=== PATIENT | male | born 1955 | race Caucasian/White ===

== ENCOUNTER 2017-12-20 15:41 | Inpatient (IN) | payer OTHER ==
[~2017-12-20] VITALS: Ht 172.7 cm; Wt 86.3 kg
[2017-12-20] MEDS ORDERED: Isovue-300 100ml vial INJ PRN (16:00)
[2017-12-20] MEDS ORDERED: Piperacillin/Tazobactam 3.375 GM in NS 110 ML IVPB ONE (16:15)
--- NOTE | 2017-12-20 16:44 | Diagnostic Imaging Report ---
EXAM: XR Chest, 1 View CLINICAL HISTORY: Shortness of breath TECHNIQUE: Frontal view of the chest. COMPARISON: No relevant prior studies available. FINDINGS: Lungs: Pulmonary vascular congestion. Atelectasis versus infiltrate in the right lung base. Pleural space: Moderate-sized layering right pleural effusion. No pneumothorax. Heart: Unremarkable. No cardiomegaly. Mediastinum: Unremarkable. Bones/joints: Unremarkable. Tubes, lines and devices: EKG leads overlie the thorax. IMPRESSION: 1. Moderate-sized layering right pleural effusion. 2. Pulmonary vascular congestion. 3. Atelectasis versus infiltrate in the right lung base.
[2017-12-20 16:46] LABS: BASOPHILS % (AUTO) 0.8 % (0.0-2.0); EOSINOPHILS % (AUTO) 0.1 % (0.0-3.0); HEMATOCRIT 31.9 % (42.0-52.0); HEMOGLOBIN 10.7 G/DL (14.2-18.0); LYMPHOCYTES % (AUTO) 9.2 % (20.0-45.0); MEAN CORPUSCULAR VOLUME 79 FL (80-99); NEUTROPHILS % (AUTO) 83.9 % (45.0-75.0); PLATELET COUNT 337 K/UL (150-450); RED BLOOD COUNT 4.04 M/UL (4.70-6.10); RED CELL DISTRIBUTION WIDTH 14.2 % (11.6-14.8)
[2017-12-20 16:52] LABS: INR 1.1 (0.9-1.1)
[2017-12-20 17:03] LABS: AMMONIA 43 umol/L (11-32); ANION GAP 7 mmol/L (5-15); BLOOD UREA NITROGEN 32 mg/dL (7-18); CALCIUM 7.8 MG/DL (8.5-10.1); CARBON DIOXIDE 27 MMOL/L (21-32); CHLORIDE 104 MMOL/L (98-107); CREATININE 1.3 MG/DL (0.55-1.30); POTASSIUM 3.7 MMOL/L (3.5-5.1); SODIUM 138 MMOL/L (136-145)
--- NOTE | 2017-12-20 17:07 | Emergency Room Report ---
History of Present Illness General Chief Complaint: Skin Rash/Abscess Source: Patient Present Illness HPI Patient is a 65-year-old male brought in by EMS after increased skin rash and scrotal pain. The patient reports having increased generalized weakness. The patient had been having subjective fevers. He had been noted to have increased pain to the left foot as well as to his scrotal area. The patient denies any past medical history. He reports having some history of cigarette smoking. He denies history of congestive heart failure. The patient was noted to have a difficulty with ambulation due to swelling. Allergies: Coded Allergies: No Known Allergies (Unverified , 12/20/17) Patient History Past Medical History: see triage record Reviewed Nursing Documentation: PMH: Agreed; PSxH: Agreed Nursing Documentation-PMH Past Medical History: No Stated History Review of Systems All Other Systems: negative except mentioned in HPI Physical Exam Vital Signs Date Time Temp Pulse Resp B/P (MAP) Pulse Ox O2 Delivery O2 Flow Rate FiO2 12/20/17 15:36 98.8 86 16 143/97 98 Room Air 98.8 Sp02 EP Interpretation: reviewed, normal General Appearance: normal inspection, alert, GCS 15, Chronically Ill Head: atraumatic ENT: normal ENT inspection, hearing grossly normal, normal voice Neck: normal inspection, full range of motion, supple, no bony tend Respiratory: normal inspection, lungs clear, normal breath sounds, no respiratory distress, no retraction, no wheezing Cardiovascular #1: regular rate, rhythm, edema - 4+ edema to legs and scrotum with ulcerated area to dorsum of left foot with yellow discoloration Gastrointestinal: normal inspection, normal bowel sounds, non tender, soft, no guarding, no hernia Genitourinary: no CVA tenderness Musculoskeletal: normal inspection, back normal Neurologic: normal inspection, alert, oriented x3, responsive, speech normal Psychiatric: normal inspection, judgement/insight normal, mood/affect normal Skin: other - left foot ulcer, scrotal discharge swelling and yellow green discoloration Medical Decision Making Diagnostic Impression: Primary Impression: Cellulitis of scrotum Additional Impressions: Left midfoot ulcer Pedal edema ER Course Patient presented for generalized weakness and lower extremity rash. The differential diagnosis included was not limited to cellulitis, abscess, Fourniere's gangrene, cirrhosis, deep venous thrombosis, congestive heart failure among others.Because of complexity of patient's case laboratory testing and imaging studies were ordered. The patient noted to have evidence of cellulitis the infected ulcer to the left leg as well as some apparent infection to the scrotal area.The patient was started on IV diuretics and IV antibiotics. Dr. Justyn Milner was contacted for inpatient management. Dr. Sears was contacted for surgical consult. due to wound infections. Labs Test 12/20/17 16:10 White Blood Count 13.0 K/UL (4.8-10.8) Red Blood Count 4.04 M/UL (4.70-6.10) Hemoglobin 10.7 G/DL (14.2-18.0) Hematocrit 31.9 % (42.0-52.0) Mean Corpuscular Volume 79 FL (80-99) Mean Corpuscular Hemoglobin 26.5 PG (27.0-31.0) Mean Corpuscular Hemoglobin Concent 33.5 G/DL (32.0-36.0) Red Cell Distribution Width 14.2 % (11.6-14.8) Platelet Count 337 K/UL (150-450) Mean Platelet Volume 6.2 FL (6.5-10.1) Neutrophils (%) (Auto) 83.9 % (45.0-75.0) Lymphocytes (%) (Auto) 9.2 % (20.0-45.0) Monocytes (%) (Auto) 6.0 % (1.0-10.0) Eosinophils (%) (Auto) 0.1 % (0.0-3.0) Basophils (%) (Auto) 0.8 % (0.0-2.0) Prothrombin Time 11.5 SEC (9.30-11.50) Prothromb Time International Ratio 1.1 (0.9-1.1) Activated Partial Thromboplast Time 29 SEC (23-33) EKG Diagnostic Results Rate: normal - 83 Rhythm: NSR ST Segments: other Last Vital Signs Date Time Temp Pulse Resp B/P (MAP) Pulse Ox O2 Delivery O2 Flow Rate FiO2 12/20/17 15:36 98.8 86 16 143/97 98 Room Air 98.8 Status: unchanged Disposition: ADMITTED INPATIENT Condition: Edward Newman MD Dec 20, 2017 17:07
[2017-12-20 17:16] LABS: ALANINE AMINOTRANSFERASE 26 U/L (12-78); ALBUMIN 1.5 G/DL (3.4-5.0); ALBUMIN/GLOBULIN RATIO 0.3 (1.0-2.7); ALKALINE PHOSPHATASE 127 U/L (46-116); ASPARTATE AMINO TRANSFERASE 19 U/L (15-37); BILIRUBIN,TOTAL 0.3 MG/DL (0.2-1.0); CKMB 1.5 NG/ML (0.0-3.6); CREATINE KINASE 93 U/L (26-308); PHOSPHORUS 3.5 MG/DL (2.5-4.9)
[2017-12-20 17:35] VITALS: BP 150/77
[2017-12-20 18:25] VITALS: BP 143/71
[2017-12-20] MEDS ORDERED: NKM (18:31)
--- NOTE | 2017-12-20 18:54 | Diagnostic Imaging Report ---
ADDENDUM - Added by Gordon Kaur MD on 12/20/2017 7:36 PM (-07:00) Additional images were obtained scanning through the scrotum. Once more, diffuse subcutaneous soft tissue stranding/edema/anasarca is noted. There is suggestion of bilateral scrotal hydroceles. No abnormal foci of subcutaneous gas are seen in the scrotum or perineum. EXAM: CT Abdomen and Pelvis With Intravenous Contrast CLINICAL HISTORY: ABD PAIN TECHNIQUE: Axial computed tomography images of the abdomen and pelvis with intravenous contrast. CTDI is 19.90 mGy and DLP is left 57 mGy-cm. One or more of the following dose reduction techniques were used: automated exposure control, adjustment of the mA and/or kV according to patient size, use of iterative reconstruction technique. COMPARISON: No relevant prior studies available. FINDINGS: Lung bases: Compressive atelectasis of bilateral dependent lung bases. Pleural space: Large right and moderate left layering pleural effusions. ABDOMEN: Liver: Mild periportal edema. Gallbladder and bile ducts: Unremarkable. No calcified stones. No ductal dilation. Pancreas: Scattered calcifications in the pancreatic head and uncinate process may suggest remote history of hepatitis. Otherwise appears unremarkable. No ductal dilation. Spleen: Unremarkable. No splenomegaly. Adrenals: Unremarkable. No mass. Kidneys and ureters: Bilateral renal hypervascular calcifications. No radiodense renal or ureteral stones. No hydronephrosis or hydroureter. Scattered simple-appearing renal cortical cysts, largest measuring 1.8 cm in the right lower renal pole. Stomach and bowel: Wall thickening throughout the colon. No obstruction. PELVIS: Appendix: No findings to suggest acute appendicitis. Bladder: Unremarkable. No mass. Reproductive: Unremarkable as visualized. ABDOMEN and PELVIS: Intraperitoneal space: Mild abdominal and pelvic ascites. No free air. Bones/joints: No acute fracture. No dislocation. Soft tissues: Diffuse subcutaneous soft tissue stranding/edema. Small fat-containing left femoral hernia. Vasculature: Atherosclerotic calcifications throughout the abdominal aorta and its proximal branches. No aneurysmal dilatation. Lymph nodes: Unremarkable. No enlarged lymph nodes. IMPRESSION: 1. Wall thickening throughout the colon. This may be related to underdistention versus a mild infectious or inflammatory colitis. No evidence of obstruction. No intraperitoneal free air. 2. Mild abdominal and pelvic ascites. 3. Diffuse subcutaneous soft tissue stranding/edema. 4. Mild periportal edema. This may be related to volume overload. 5. Large right and moderate left layering pleural effusions. 6. Compressive atelectasis of bilateral dependent lung bases. [employer] 12/20/17 19:42 Verify Receipt Verified receipt with LIZANDRO Pierce, given to Umair PINO on 12/20 19:43 (-07:00)
[2017-12-20 19:40] LABS: APPEARANCE,URINE SLIGHTLY CLOUDY; BILIRUBIN, URINE NEGATIVE (NEGATIVE); COLOR,URINE AMBER; GLUCOSE, URINE (UA) NEGATIVE (NEGATIVE); KETONES,URINE NEGATIVE (NEGATIVE); LEUKOCYTE ESTERASE ,URINE NEGATIVE (NEGATIVE); NITRITE,URINE NEGATIVE (NEGATIVE); PH,URINE 5 (4.5-8.0); PROTEIN,URINE 4+ (NEGATIVE); UROBILINOGEN,URINE NORMAL MG/DL (0.0-1.0)
[2017-12-20 20:32] VITALS: BP 145/83
[2017-12-20 21:41] VITALS: BP 144/88
--- NOTE | 2017-12-20 22:39 | General Progress Note ---
Progress Note Progress Note Full note to follow: patient seen and examined in ED. Homeless male with multiple wounds, groin swelling, edema, leukocytosis, weakness. Left foot dorsal stage 4 ulcer left medial ankle 1cm ulcer right foot dorsal blister scrotal swelling with penile swelling and open wound. CT reviewed, labs reviewed. no acute surgical intervention planned foam dressings to wounds above until debridement this week IV abx okay for diet. will follow with recs. thank you Tesfaye Sears Dec 20, 2017 22:39
[2017-12-20] MEDS ORDERED: Milk of Magnesia 30ml Ud ORAL PRN (22:45)
[2017-12-20] MEDS ORDERED: Mylanta II UD 30ml ORAL PRN (22:45)
[2017-12-20] MEDS ORDERED: Morphine Sulfate 4mg/ml Inj IVP PRN ×2 (23:00→23:15)
[2017-12-20] MEDS ORDERED: Heparin 5000 units/ml inj SUBQ SCH (23:00)
[2017-12-20] MEDS ORDERED: D5 1/2NS w/KCl 20mEq 1,000 ML IV SCH (23:39)
[2017-12-21] VITALS: BP 145/79
[2017-12-21] MEDS: Piperacillin/Tazobactam 3.375 GM in D5W 110 ML IVPB SCH ×3 (00:29→16:58)
[2017-12-21] MEDS ORDERED: Vancomycin 750mg/NS 250ml IVPB SCH (01:00)
[2017-12-21 04:00] VITALS: BP 131/77
[2017-12-21 08:00] VITALS: BP 136/74
[2017-12-21 08:14] LABS: BASOPHILS % (AUTO) 0.6 % (0.0-2.0); EOSINOPHILS % (AUTO) 0.3 % (0.0-3.0); HEMATOCRIT 32.4 % (42.0-52.0); HEMOGLOBIN 10.4 G/DL (14.2-18.0); LYMPHOCYTES % (AUTO) 7.8 % (20.0-45.0); MEAN CORPUSCULAR VOLUME 82 FL (80-99); MONOCYTES % (AUTO) 6.6 % (1.0-10.0); NEUTROPHILS % (AUTO) 84.8 % (45.0-75.0); PLATELET COUNT 334 K/UL (150-450); RED BLOOD COUNT 3.94 M/UL (4.70-6.10); RED CELL DISTRIBUTION WIDTH 14.4 % (11.6-14.8); WHITE BLOOD COUNT 11.6 K/UL (4.8-10.8)
[2017-12-21 08:26] LABS: ALANINE AMINOTRANSFERASE 23 U/L (12-78); ALBUMIN 1.4 G/DL (3.4-5.0); ALBUMIN/GLOBULIN RATIO 0.3 (1.0-2.7); ALKALINE PHOSPHATASE 125 U/L (46-116); ANION GAP 8 mmol/L (5-15); ASPARTATE AMINO TRANSFERASE 12 U/L (15-37); BILIRUBIN,TOTAL 0.3 MG/DL (0.2-1.0); BLOOD UREA NITROGEN 27 mg/dL (7-18); CALCIUM 7.7 MG/DL (8.5-10.1); CARBON DIOXIDE 26 MMOL/L (21-32); CHLORIDE 104 MMOL/L (98-107); CHOLESTEROL 101 MG/DL (< 200); CREATININE 1.2 MG/DL (0.55-1.30); HDL CHOLESTEROL 33 MG/DL (40-60); POTASSIUM 3.7 MMOL/L (3.5-5.1); SODIUM 138 MMOL/L (136-145); TRIGLYCERIDES 98 MG/DL (30-150)
[2017-12-21] MEDS ORDERED: Docusate 100mg cap ORAL SCH (09:00)
[2017-12-21] MEDS ORDERED: Heparin 5000 units/ml inj SUBQ SCH (09:00)
--- NOTE | 2017-12-21 10:47 | History & Physical ---
History and Physical History & Physicial 65-year-old male brought in for skin rash and scrotal pain and erythema. patient with generalized weakness. The patient had been having subjective fevers. He had been noted to have increased pain to the left foot as well as to his scrotal area. The patient was noted to have a difficulty with ambulation due to swelling. He notes that he is homeless Allergies: No Known Allergies (Unverified , 12/20/17) Past Medical History: as above Reviewed of systems: as above physical WDWN NAD clear breath sounds bilaterally without rhonchi or wheeze [id number] without MRG NABS nontender no HSM no CC edema and erythema scrotal swelling and erythema open wounds noted nonfocal Laboratory Tests Test 12/20/17 16:10 12/20/17 19:15 12/20/17 21:35 12/21/17 07:05 White Blood Count 13.0 K/UL (4.8-10.8) H 11.6 K/UL (4.8-10.8) H Red Blood Count 4.04 M/UL (4.70-6.10) L 3.94 M/UL (4.70-6.10) L Hemoglobin 10.7 G/DL (14.2-18.0) L 10.4 G/DL (14.2-18.0) L Hematocrit 31.9 % (42.0-52.0) L 32.4 % (42.0-52.0) L Mean Corpuscular Volume 79 FL (80-99) L 82 FL (80-99) Mean Corpuscular Hemoglobin 26.5 PG (27.0-31.0) L 26.4 PG (27.0-31.0) L Mean Corpuscular Hemoglobin Concent 33.5 G/DL (32.0-36.0) 32.1 G/DL (32.0-36.0) Red Cell Distribution Width 14.2 % (11.6-14.8) 14.4 % (11.6-14.8) Platelet Count 337 K/UL (150-450) 334 K/UL (150-450) Mean Platelet Volume 6.2 FL (6.5-10.1) L 6.5 FL (6.5-10.1) Neutrophils (%) (Auto) 83.9 % (45.0-75.0) H 84.8 % (45.0-75.0) H Lymphocytes (%) (Auto) 9.2 % (20.0-45.0) L 7.8 % (20.0-45.0) L Monocytes (%) (Auto) 6.0 % (1.0-10.0) 6.6 % (1.0-10.0) Eosinophils (%) (Auto) 0.1 % (0.0-3.0) 0.3 % (0.0-3.0) Basophils (%) (Auto) 0.8 % (0.0-2.0) 0.6 % (0.0-2.0) Prothrombin Time 11.5 SEC (9.30-11.50) Prothromb Time International Ratio 1.1 (0.9-1.1) Activated Partial Thromboplast Time 29 SEC (23-33) Sodium Level 138 MMOL/L (136-145) 138 MMOL/L (136-145) Potassium Level 3.7 MMOL/L (3.5-5.1) 3.7 MMOL/L (3.5-5.1) Chloride Level 104 MMOL/L (98-107) 104 MMOL/L (98-107) Carbon Dioxide Level 27 MMOL/L (21-32) 26 MMOL/L (21-32) Anion Gap 7 mmol/L (5-15) 8 mmol/L (5-15) Blood Urea Nitrogen 32 mg/dL (7-18) H 27 mg/dL (7-18) H Creatinine 1.3 MG/DL (0.55-1.30) 1.2 MG/DL (0.55-1.30) Estimat Glomerular Filtration Rate 55.6 mL/min (>60) > 60 mL/min (>60) Glucose Level 205 MG/DL (74-106) H 195 MG/DL (74-106) H Lactic Acid Level 2.20 mmol/L (0.4-2.0) H 1.30 mmol/L (0.66-2.22) Calcium Level 7.8 MG/DL (8.5-10.1) L 7.7 MG/DL (8.5-10.1) L Phosphorus Level 3.5 MG/DL (2.5-4.9) Magnesium Level 2.0 MG/DL (1.8-2.4) Total Bilirubin 0.3 MG/DL (0.2-1.0) 0.3 MG/DL (0.2-1.0) Aspartate Amino Transf (AST/SGOT) 19 U/L (15-37) 12 U/L (15-37) L Alanine Aminotransferase (ALT/SGPT) 26 U/L (12-78) 23 U/L (12-78) Alkaline Phosphatase 127 U/L (46-116) H 125 U/L (46-116) H Ammonia 43 umol/L (11-32) H Total Creatine Kinase 93 U/L (26-308) Creatine Kinase MB 1.5 NG/ML (0.0-3.6) Creatine Kinase MB Relative Index 1.6 Troponin I 0.103 ng/mL (0.000-0.056) Pro-B-Type Natriuretic Peptide 33286 pg/mL (0-125) H Total Protein 6.5 G/DL (6.4-8.2) 6.2 G/DL (6.4-8.2) L Albumin 1.5 G/DL (3.4-5.0) L 1.4 G/DL (3.4-5.0) L Globulin 5.0 g/dL 4.8 g/dL Albumin/Globulin Ratio 0.3 (1.0-2.7) L 0.3 (1.0-2.7) L Urine Color Jayne Urine Appearance Slightly cloudy Urine pH 5 (4.5-8.0) Urine Specific [place] 1.020 (1.005-1.035) Urine Protein 4+ (NEGATIVE) H Urine Glucose (UA) Negative (NEGATIVE) Urine Ketones Negative (NEGATIVE) Urine Occult Blood 2+ (NEGATIVE) H Urine Nitrite Negative (NEGATIVE) Urine Bilirubin Negative (NEGATIVE) Urine Ictotest Negative Urine Urobilinogen Normal MG/DL (0.0-1.0) Urine Leukocyte Esterase Negative (NEGATIVE) Urine RBC 5-10 /HPF (0 - 0) H Urine WBC 0-2 /HPF (0 - 0) Urine Squamous Epithelial Cells Occasional /LPF Urine Bacteria Few /HPF (NONE) Urine Mucus Moderate /LPF (NONE/OCC) H Hemoglobin A1c 7.7 % (4.3-6.0) H Triglycerides Level 98 MG/DL (30-150) Cholesterol Level 101 MG/DL (< 200) LDL Cholesterol 60 mg/dL (<100) HDL Cholesterol 33 MG/DL (40-60) L Cholesterol/HDL Ratio 3.1 (3.3-4.4) L IMPRESSION DIABETES proteinuria scrotal erythema cellulitis edema severe protein calorie malnutrition PLAN iv antibiotics id evaluation wound care surgery appreciated may need placement impression, plan, and exam edited and reviewed in detail care discussed with Justyn Ortega MD Dec 21, 2017 10:47
[2017-12-21 12:00] VITALS: BP 129/69
[2017-12-21] MEDS: D5 1/2NS w/KCl 20mEq 1,000 ML IV SCH (12:15)
[2017-12-21] MEDS ORDERED: Mylanta II UD 30ml ORAL PRN (12:30)
[2017-12-21] MEDS ORDERED: Milk of Magnesia 30ml Ud ORAL PRN (12:30)
--- NOTE | 2017-12-21 13:03 | Consultation ---
History of Present Illness General Chief Complaint: Skin Rash/Abscess Present Illness HPI 62 year old homeless male with pmhx of GERD, UC, DM, PTSD and multiple wounds, groin swelling, edema, leukocytosis, weakness. noted to have skin rash and worsening scrotal edema so came to ED for evaluation. noted to have multiple other wounds as well on admission. concerns for possible necrotizing scrotal infection. CT ordered and reviewed. Surgery called to evaluate to ensure to acute debridement necessary. wounds as below. patient seen, chart reviewed, patient examined. Left foot dorsal stage 4 ulcer left medial ankle 1cm ulcer right foot dorsal blister scrotal swelling with penile swelling and open wound. Allergies: Coded Allergies: No Known Allergies (Unverified , 12/20/17) Medication History Scheduled No Known Medications* (NKM - No Known Medications*), 0 ., (Reported) Patient History History Provided By: Patient, Medical Record, PMD Healthcare decision maker Resuscitation status Full Code Advanced Directive on File Past Medical/Surgical History Past Medical/Surgical History: (1) Diabetes (2) Diabetic ulcer of left foot (3) Pedal edema (4) Cellulitis of scrotum (5) Left midfoot ulcer Review of Systems All Other Systems: negative except mentioned in HPI Physical Exam General Appearance: no apparent distress Lines, tubes and drains: peripheral HEENT: mucous membranes moist, PERRL Neck: normal inspection Respiratory/Chest: normal breath sounds, no respiratory distress, no accessory muscle use Cardiovascular/Chest: normal rate Abdomen: normal bowel sounds, soft, no organomegaly, no mass Genitourinary/Rectal: other - scortal cellulitis with edema, midline wound chronic, penile swelling Extremities: moderate edema, other - cellulitis distal bilateral lower extremities. stage 4 ulcer on left foot. blister on right foot Neurologic: alert, oriented x 3 Last 24 Hour Vital Signs Date Time Temp Pulse Resp B/P (MAP) Pulse Ox O2 Delivery O2 Flow Rate FiO2 12/21/17 12:00 99.0 79 19 129/69 (89) 94 99.0 12/21/17 09:00 Room Air 12/21/17 08:00 97.9 76 19 136/74 (94) 98 97.9 12/21/17 08:00 79 12/21/17 04:00 75 12/21/17 04:00 98.7 82 18 131/77 (95) 94 98.7 12/21/17 01:32 Room Air 12/21/17 00:00 99.0 91 20 145/79 (101) 95 99.0 12/21/17 00:00 88 12/20/17 22:00 88 12/20/17 22:00 98.5 85 24 144/88 96 Room Air 98.5 12/20/17 21:41 85 24 144/88 96 Room Air 12/20/17 20:32 98.5 85 22 145/83 96 Room Air 98.5 12/20/17 18:25 98.8 86 22 143/71 95 Room Air 98.8 12/20/17 17:35 98.8 92 17 150/77 98 Room Air 98.8 12/20/17 15:36 98.8 86 16 143/97 98 Room Air 98.8 Intake and Output 12/20/17 12/21/17 19:00 07:00 Intake Total 110 ml Output Total 1500 ml Balance 110 ml -1500 ml Intake IV Total 110 ml Output Urine Total 1500 ml Laboratory Tests Test 12/20/17 16:10 12/20/17 19:15 12/20/17 21:35 12/21/17 07:05 White Blood Count 13.0 K/UL (4.8-10.8) H 11.6 K/UL (4.8-10.8) H Red Blood Count 4.04 M/UL (4.70-6.10) L 3.94 M/UL (4.70-6.10) L Hemoglobin 10.7 G/DL (14.2-18.0) L 10.4 G/DL (14.2-18.0) L Hematocrit 31.9 % (42.0-52.0) L 32.4 % (42.0-52.0) L Mean Corpuscular Volume 79 FL (80-99) L 82 FL (80-99) Mean Corpuscular Hemoglobin 26.5 PG (27.0-31.0) L 26.4 PG (27.0-31.0) L Mean Corpuscular Hemoglobin Concent 33.5 G/DL (32.0-36.0) 32.1 G/DL (32.0-36.0) Red Cell Distribution Width 14.2 % (11.6-14.8) 14.4 % (11.6-14.8) Platelet Count 337 K/UL (150-450) 334 K/UL (150-450) Mean Platelet Volume 6.2 FL (6.5-10.1) L 6.5 FL (6.5-10.1) Neutrophils (%) (Auto) 83.9 % (45.0-75.0) H 84.8 % (45.0-75.0) H Lymphocytes (%) (Auto) 9.2 % (20.0-45.0) L 7.8 % (20.0-45.0) L Monocytes (%) (Auto) 6.0 % (1.0-10.0) 6.6 % (1.0-10.0) Eosinophils (%) (Auto) 0.1 % (0.0-3.0) 0.3 % (0.0-3.0) Basophils (%) (Auto) 0.8 % (0.0-2.0) 0.6 % (0.0-2.0) Prothrombin Time 11.5 SEC (9.30-11.50) Prothromb Time International Ratio 1.1 (0.9-1.1) Activated Partial Thromboplast Time 29 SEC (23-33) Sodium Level 138 MMOL/L (136-145) 138 MMOL/L (136-145) Potassium Level 3.7 MMOL/L (3.5-5.1) 3.7 MMOL/L (3.5-5.1) Chloride Level 104 MMOL/L (98-107) 104 MMOL/L (98-107) Carbon Dioxide Level 27 MMOL/L (21-32) 26 MMOL/L (21-32) Anion Gap 7 mmol/L (5-15) 8 mmol/L (5-15) Blood Urea Nitrogen 32 mg/dL (7-18) H 27 mg/dL (7-18) H Creatinine 1.3 MG/DL (0.55-1.30) 1.2 MG/DL (0.55-1.30) Estimat Glomerular Filtration Rate 55.6 mL/min (>60) > 60 mL/min (>60) Glucose Level 205 MG/DL (74-106) H 195 MG/DL (74-106) H Lactic Acid Level 2.20 mmol/L (0.4-2.0) H 1.30 mmol/L (0.66-2.22) Calcium Level 7.8 MG/DL (8.5-10.1) L 7.7 MG/DL (8.5-10.1) L Phosphorus Level 3.5 MG/DL (2.5-4.9) Magnesium Level 2.0 MG/DL (1.8-2.4) Total Bilirubin 0.3 MG/DL (0.2-1.0) 0.3 MG/DL (0.2-1.0) Aspartate Amino Transf (AST/SGOT) 19 U/L (15-37) 12 U/L (15-37) L Alanine Aminotransferase (ALT/SGPT) 26 U/L (12-78) 23 U/L (12-78) Alkaline Phosphatase 127 U/L (46-116) H 125 U/L (46-116) H Ammonia 43 umol/L (11-32) H Total Creatine Kinase 93 U/L (26-308) Creatine Kinase MB 1.5 NG/ML (0.0-3.6) Creatine Kinase MB Relative Index 1.6 Troponin I 0.103 ng/mL (0.000-0.056) Pro-B-Type Natriuretic Peptide 65586 pg/mL (0-125) H Total Protein 6.5 G/DL (6.4-8.2) 6.2 G/DL (6.4-8.2) L Albumin 1.5 G/DL (3.4-5.0) L 1.4 G/DL (3.4-5.0) L Globulin 5.0 g/dL 4.8 g/dL Albumin/Globulin Ratio 0.3 (1.0-2.7) L 0.3 (1.0-2.7) L Urine Color Jayne Urine Appearance Slightly cloudy Urine pH 5 (4.5-8.0) Urine Specific [place] 1.020 (1.005-1.035) Urine Protein 4+ (NEGATIVE) H Urine Glucose (UA) Negative (NEGATIVE) Urine Ketones Negative (NEGATIVE) Urine Occult Blood 2+ (NEGATIVE) H Urine Nitrite Negative (NEGATIVE) Urine Bilirubin Negative (NEGATIVE) Urine Ictotest Negative Urine Urobilinogen Normal MG/DL (0.0-1.0) Urine Leukocyte Esterase Negative (NEGATIVE) Urine RBC 5-10 /HPF (0 - 0) H Urine WBC 0-2 /HPF (0 - 0) Urine Squamous Epithelial Cells Occasional /LPF Urine Bacteria Few /HPF (NONE) Urine Mucus Moderate /LPF (NONE/OCC) H Hemoglobin A1c 7.7 % (4.3-6.0) H Triglycerides Level 98 MG/DL (30-150) Cholesterol Level 101 MG/DL (< 200) LDL Cholesterol 60 mg/dL (<100) HDL Cholesterol 33 MG/DL (40-60) L Cholesterol/HDL Ratio 3.1 (3.3-4.4) L Microbiology Date/Time Source Procedure Growth Status 12/20/17 16:10 Ankle Left Gram Stain - Final Resulted 12/20/17 16:10 Wound Culture - Preliminary Gram Negative [place] Staphylococcus Species Resulted Height (Feet): 5 Height (Inches): 8.00 Weight (Pounds): 210 Medications Current Medications Medications (Trade) Dose Ordered Sig/Bandar Route PRN Reason Start Time Stop Time Status Last Admin Dose Admin Acetaminophen (Tylenol) 650 mg Q4H PRN ORAL Mild Pain (Pain Scale 1-3) 12/21/17 12:30 01/19/18 12:29 Acetaminophen (Tylenol) 650 mg Q4H PRN ORAL Mild Pain/Temp > 100.5 12/21/17 12:30 01/19/18 12:29 Al Hydroxide/Mg Hydroxide (Mylanta II) 30 ml Q6H PRN ORAL dyspepsia 12/21/17 12:30 01/19/18 12:29 Dextrose (Dextrose 50%) 25 ml STAT PRN IV Hypoglycemia 12/21/17 12:30 01/19/18 12:29 Dextrose (Dextrose 50%) 50 ml STAT PRN IV Hypoglycemia 12/21/17 12:30 01/19/18 12:29 Dextrose/ Electrolytes 1,000 ml @ 75 mls/hr [id number] IV 12/21/17 12:15 01/19/18 23:38 Diphenhydramine HCl (Benadryl) 25 mg Q6H PRN ORAL Itching/Pruritis 12/21/17 12:30 01/19/18 12:29 Docusate Sodium (Colace) 100 mg EVERY 12 HOURS ORAL 12/21/17 21:00 01/20/18 08:59 Heparin Sodium (Porcine) (Heparin 5000 units/ml) 5,000 units EVERY 12 HOURS SUBQ 12/21/17 21:00 01/19/18 22:59 Magnesium Hydroxide (Mom) 30 ml HSPRN PRN ORAL Constipation 12/21/17 12:30 01/19/18 12:29 Morphine Sulfate (Morphine Sulfate) 2 mg Q4H PRN IVP MODERATE PAIN (PAIN SCALE 4-6) 12/21/17 15:00 12/27/17 22:59 Morphine Sulfate (Morphine Sulfate) 4 mg Q4H PRN IVP for pain 12/21/17 12:30 12/27/17 12:29 Ondansetron HCl (Zofran) 4 mg Q6H PRN IVP Nausea & Vomiting 12/21/17 12:30 01/19/18 12:29 Pantoprazole (Protonix) 40 mg DAILY ORAL 12/22/17 09:00 01/20/18 08:59 Piperacillin Sod/ Tazobactam Sod 3.375 gm/Dextrose 110 ml @ 27.5 mls/hr Q8H IVPB 12/21/17 16:00 12/28/17 00:00 Temazepam (Restoril) 15 mg HSPRN PRN ORAL Insomnia 12/21/17 21:00 12/27/17 20:59 Vancomycin HCl (Vanco rx to dose) 1 ea DAILY PRN MISC Per rx protocol 12/22/17 09:00 01/19/18 23:44 Vancomycin/Sodium Chloride 250 ml @ 166.667 mls/hr Q12H IVPB 12/21/17 13:00 12/26/17 00:59 Assessment/Plan Problem List: (1) Cellulitis of scrotum Assessment & Plan: CT reviewed. no acute surgical intervention necessary skin care and non adherent dressigns urology consult is possible IV Abx ICD Codes: N49.2 - Inflammatory disorders of scrotum SNOMED: 63299501 (2) Diabetic ulcer of left foot Assessment & Plan: large ulcer on left midfoot dorsal aspect. will need debridement will order MRI first needs venous and arterial duplex bilateral lower extremities IV Abx elevate extremities. ICD Codes: E11.621 - Type 2 diabetes mellitus with foot ulcer; L97.529 - Non- pressure chronic ulcer of other part of left foot with unspecified severity SNOMED: 28659459, [id number] Qualifiers: Status: stable Assessment/Plan Left foot dorsal stage 4 ulcer left medial ankle 1cm ulcer right foot dorsal blister scrotal swelling with penile swelling and open wound. no acute surgical intervention planned foam dressings to wounds above until debridement this week IV abx labs and imaging as ordered all wounds present on admission will follow with recs. thank you Tesfaye Sears Dec 21, 2017 13:03
[2017-12-21 16:00] VITALS: BP 135/75
[2017-12-21] MEDS ORDERED: Isovue-300 100ml vial INJ PRN (16:00)
[2017-12-21] MEDS: Vancomycin 750mg/NS 250ml 250 ML IVPB SCH (16:58)
--- NOTE | 2017-12-21 18:07 | Cardiology Report ---
APPROVED REPORT EXAM: Two-dimensional and M-mode echocardiogram with Doppler and color Doppler. INDICATION Congestive Heart Failure M-Mode DIMENSIONS IVSd1.6 (0.7-1.1cm)Left Atrium (MM)4.1 (1.6-4.0cm) LVDd6.1 (3.5-5.6cm)Aortic Root3.6 (2.0-3.7cm) PWd0.8 (0.7-1.1cm)Aortic Cusp Exc.2.2 (1.5-2.0cm) IVSs1.9 cm LVDs4.7 (2.5-4.0cm) PWs1.0 cm Technically difficult study due to poor acoustical windows. Global left ventricular hypokinesis, however better motion is noted in the proximal to mid posterior and lateral and inferieor thomas with akinesis of the mid to distal septum and possibley the apcial thomas.Please note the apical endocardium is very poorly defined. Mild left ventricular enlargements Left ventricular ejection fraction estimated to be 35-40%. No evidence of left ventricular hypertrophy. No evidence of pericardial effusion. Pleural effusion present . All other cardiac chamber sizes are within normal limits. Focal aortic valve sclerosis with adequate cusp excursion. Thickened mitral valve leaflets with normal excursion. Mitral annulus and aortic root calcification. Pulmonic valve not well visualized. Normal tricuspid valve structure. IVC dilated at size 2.6without physiologic collapse. suggestive of increased RA pressure. A color flow and spectral Doppler study was performed and revealed: Mild aortic regurgitation. Mild mitral regurgitation. Mitral inflow velocities indicates possible pseudo normalization pattern implying moderately elevated left atrial pressure (Grade II ). Mild tricuspid regurgitation. Tricuspid systolic velocities suggests peak right ventricular systolic pressure of 48mmHg,consistent with moderate pulmonary hypertension. No Pulmonic regurgitation present.
--- NOTE | 2017-12-21 18:35 | Cardiology Report ---
APPROVED REPORT EKG Measurement Heart [id number] Normal sinus rhythm Low voltage QRS Cannot rule out Anteroseptal infarct, age undetermined Abnormal ECG
[2017-12-21 20:00] VITALS: BP 137/72
[2017-12-21] MEDS: Docusate 100mg cap ORAL SCH ×2 (20:59→21:00)
[2017-12-21] MEDS: Morphine Sulfate 4mg/ml Inj IVP PRN (21:01)
[2017-12-21] MEDS: Heparin 5000 units/ml inj SUBQ SCH (21:02)
[2017-12-22] VITALS: BP 139/90
[2017-12-22] MEDS: Piperacillin/Tazobactam 3.375 GM in D5W 110 ML IVPB SCH ×4 (00:34→23:45)
--- NOTE | 2017-12-22 01:00 | Consultation ---
DATE OF CONSULTATION: INFECTIOUS DISEASE CONSULTATION This consult is for coverage of Dr. Teixeira. CONSULTING PHYSICIAN: Juan Jose Mcgee M.D. PRIMARY ATTENDING PHYSICIAN: Justyn Milner M.D. REASON FOR CONSULT: Cellulitis of left foot and scrotum. HISTORY OF PRESENT ILLNESS: The patient is a 62-year-old male admitted last night complaining of weakness, had subjective fever. The patient cannot walk anymore, developed swelling of the scrotum and legs. He is homeless. PAST MEDICAL HISTORY: Significant for smoking and diabetes. ALLERGIES: No known drug allergy. MEDICATIONS: Protonix, Colace, heparin, vancomycin, Zosyn, morphine, and Zofran. REVIEW OF SYSTEMS: He has shortness of breath. No nausea. No vomiting. No diarrhea. Swelling and some pain in the scrotum and left lower extremity. PHYSICAL EXAMINATION: GENERAL APPEARANCE: Seems to be ill. HEAD AND NECK: [place] conjunctiva. HEART: Regular. LUNGS: Decreased sounds in the bases. ABDOMEN: Soft and nontender. EXTREMITIES: Has anasarca with extensive edema in the lower extremities, has skin ulceration, erythema in the left lower extremity. Skin ulcer seems to be necrotic. GENITOURINARY: He has scrotal edema, some skin lesion in the midline. LABORATORY AND DIAGNOSTIC DATA: WBC 11.6, coming down from 13, hemoglobin 10.4, hematocrit 32.4, and platelets 334. Sodium 138, potassium 3.7, chloride 104, bicarbonate 26, BUN 27, creatinine 1.2, and glucose 195. Albumin is 1.4. Alkaline phosphatase is 125. Ammonia was 43. Lactic acid was 2.2, coming down to 1.3. BNP was elevated to 2368. UA showed 0 to 2 wbc's and proteinuria 4+. Troponin was 0.103. Wound culture from left foot growing gram-negative bhavin staph. IMPRESSION: Cellulitis with necrobiotic ulcer in the left foot area, in addition multiple skin cracks with discharge in the left lower extremity. May have cellulitis in the scrotum also. The patient has anemia. A CT scan of the abdomen and pelvis showed bilateral pleural effusion that is large in the right side with compression atelectasis, has colonic wall thickening, probably colitis, has anasarca, had lactic acidosis and diabetes mellitus. He is homeless, has anemia, and has severe protein malnutrition. RECOMMENDATION: We will continue with vancomycin and Zosyn. We will follow up the cultures. The patient will have thoracentesis , will order echocardiogram to rule out CHF. At the end of my exam, I thank Dr. Milner for involving me in the care of this patient. Juan Jose Mcgee M.D. DR: SOFIA JOB#: [id number] CC: ERIKA
[2017-12-22] MEDS: Vancomycin 750mg/NS 250ml 250 ML IVPB SCH ×2 (01:28→15:37)
[2017-12-22] MEDS: D5 1/2NS w/KCl 20mEq 1,000 ML IV SCH ×2 (01:35→15:37)
[2017-12-22 04:00] VITALS: BP 117/73
[2017-12-22 07:33] LABS: BASOPHILS % (AUTO) 0.5 % (0.0-2.0); EOSINOPHILS % (AUTO) 0.8 % (0.0-3.0); HEMATOCRIT 33.2 % (42.0-52.0); HEMOGLOBIN 10.2 G/DL (14.2-18.0); LYMPHOCYTES % (AUTO) 9.2 % (20.0-45.0); MEAN CORPUSCULAR VOLUME 82 FL (80-99); MONOCYTES % (AUTO) 7.4 % (1.0-10.0); NEUTROPHILS % (AUTO) 82.1 % (45.0-75.0); PLATELET COUNT 340 K/UL (150-450); RED BLOOD COUNT 4.03 M/UL (4.70-6.10); RED CELL DISTRIBUTION WIDTH 14.4 % (11.6-14.8); WHITE BLOOD COUNT 12.2 K/UL (4.8-10.8)
[2017-12-22 07:49] LABS: ALANINE AMINOTRANSFERASE 21 U/L (12-78); ALBUMIN 1.4 G/DL (3.4-5.0); ALBUMIN/GLOBULIN RATIO 0.3 (1.0-2.7); ALKALINE PHOSPHATASE 164 U/L (46-116); ANION GAP 0 mmol/L (5-15); ASPARTATE AMINO TRANSFERASE 17 U/L (15-37); BILIRUBIN,TOTAL 0.3 MG/DL (0.2-1.0); BLOOD UREA NITROGEN 29 mg/dL (7-18); CALCIUM 7.7 MG/DL (8.5-10.1); CARBON DIOXIDE 27 MMOL/L (21-32); CHLORIDE 106 MMOL/L (98-107); CREATININE 1.3 MG/DL (0.55-1.30); POTASSIUM 4.8 MMOL/L (3.5-5.1); SODIUM 133 MMOL/L (136-145)
[2017-12-22 08:00] VITALS: BP 139/76
--- NOTE | 2017-12-22 08:42 | General Progress Note ---
Assessment/Plan Assessment/Plan IMPRESSION DIABETES proteinuria scrotal erythema cellulitis edema severe protein calorie malnutrition cardiomyopathy pulmonary hypertension PLAN iv antibiotics id evaluation noted wound care surgery appreciated may need placement impression, plan, and exam edited and reviewed in detail care discussed with RN Subjective Allergies: Coded Allergies: No Known Allergies (Unverified , 12/20/17) Objective Last 24 Hour Vital Signs Date Time Temp Pulse Resp B/P (MAP) Pulse Ox O2 Delivery O2 Flow Rate FiO2 12/22/17 08:00 98.6 76 20 139/76 (97) 95 98.6 12/22/17 04:00 98.7 77 19 117/73 (88) 92 98.7 12/22/17 00:00 99.2 85 19 139/90 (106) 92 99.2 12/21/17 21:00 Room Air 12/21/17 20:00 99.0 83 19 137/72 (93) 94 99.0 12/21/17 16:00 96.8 81 19 135/75 (95) 94 96.8 12/21/17 12:00 99.0 79 19 129/69 (89) 94 99.0 12/21/17 09:00 Room Air Intake and Output 12/21/17 12/22/17 19:00 07:00 Intake Total 480 ml Output Total 1050 ml 400 ml Balance -570 ml -400 ml Intake Oral 480 ml Output Urine Total 1050 ml 400 ml Laboratory Tests 12/22/17 06:10: White Blood Count 12.2H, Red Blood Count 4.03L, Hemoglobin 10.2L, Hematocrit 33.2L, Mean Corpuscular Volume 82, Mean Corpuscular Hemoglobin 25.4L, Mean Corpuscular Hemoglobin Concent 30.8L, Red Cell Distribution Width 14.4, Platelet Count 340, Mean Platelet Volume 6.7, Neutrophils (%) (Auto) 82.1H, Lymphocytes (%) (Auto) 9.2L, Monocytes (%) (Auto) 7.4, Eosinophils (%) (Auto) 0.8, Basophils (%) (Auto) 0.5, Sodium Level 133L, Potassium Level 4.8, Chloride Level 106, Carbon Dioxide Level 27, Anion Gap 0L, Blood Urea Nitrogen 29H, Creatinine 1.3, Estimat Glomerular Filtration Rate 56.1, Glucose Level 191H, Calcium Level 7.7L, Total Bilirubin 0.3, Aspartate Amino Transf (AST/SGOT) 17, Alanine Aminotransferase (ALT/SGPT) 21, Alkaline Phosphatase 164H, Total Protein 6.3L, Albumin 1.4L, Globulin 4.9, Albumin/Globulin Ratio 0.3L Height (Feet): 5 Height (Inches): 8.00 Weight (Pounds): 210 Objective WDWN NAD clear breath sounds bilaterally without rhonchi or wheeze [id number] without MRG NABS nontender no HSM no CC edema and erythema scrotal swelling and erythema open wounds noted nonfocal Justyn Milner MD Dec 22, 2017 08:41
[2017-12-22] MEDS: Morphine Sulfate 4mg/ml Inj IVP PRN ×3 (08:56→21:59)
[2017-12-22] MEDS: Docusate 100mg cap ORAL SCH ×2 (09:04→22:00)
[2017-12-22] MEDS: Heparin 5000 units/ml inj SUBQ SCH ×2 (09:04→22:01)
[2017-12-22] MEDS ORDERED: Lidocaine 1% Plain 30 ml INJ SCH (10:30)
[2017-12-22 11:57] VITALS: BP 136/73
--- NOTE | 2017-12-22 14:17 | General Surgery Progress Note ---
General Surgery-Progress Note Subjective Additional Comments no acute events. obtaining imaging today. Objective Last 24 Hour Vital Signs Date Time Temp Pulse Resp B/P (MAP) Pulse Ox O2 Delivery O2 Flow Rate FiO2 12/22/17 12:17 98.3 12/22/17 11:57 98.3 81 20 136/73 (94) 95 98.3 12/22/17 11:18 98.6 12/22/17 09:26 98.6 12/22/17 09:00 Room Air 12/22/17 08:00 98.6 76 20 139/76 (97) 95 98.6 12/22/17 04:00 98.7 77 19 117/73 (88) 92 98.7 12/22/17 00:00 99.2 85 19 139/90 (106) 92 99.2 12/21/17 21:00 Room Air 12/21/17 20:00 99.0 83 19 137/72 (93) 94 99.0 12/21/17 16:00 96.8 81 19 135/75 (95) 94 96.8 I&O Intake and Output 12/21/17 12/22/17 19:00 07:00 Intake Total 480 ml Output Total 1050 ml 400 ml Balance -570 ml -400 ml Intake Oral 480 ml Output Urine Total 1050 ml 400 ml Dressing: saturated Wound: other - see per photos Drains: none Cardiovascular: RSR Respiratory: clear Abdomen: soft, flat, non-tender, present bowel sounds Extremities: edema, cyanosis Laboratory Tests Test 12/22/17 06:10 White Blood Count 12.2 K/UL (4.8-10.8) H Red Blood Count 4.03 M/UL (4.70-6.10) L Hemoglobin 10.2 G/DL (14.2-18.0) L Hematocrit 33.2 % (42.0-52.0) L Mean Corpuscular Volume 82 FL (80-99) Mean Corpuscular Hemoglobin 25.4 PG (27.0-31.0) L Mean Corpuscular Hemoglobin Concent 30.8 G/DL (32.0-36.0) L Red Cell Distribution Width 14.4 % (11.6-14.8) Platelet Count 340 K/UL (150-450) Mean Platelet Volume 6.7 FL (6.5-10.1) Neutrophils (%) (Auto) 82.1 % (45.0-75.0) H Lymphocytes (%) (Auto) 9.2 % (20.0-45.0) L Monocytes (%) (Auto) 7.4 % (1.0-10.0) Eosinophils (%) (Auto) 0.8 % (0.0-3.0) Basophils (%) (Auto) 0.5 % (0.0-2.0) Sodium Level 133 MMOL/L (136-145) L Potassium Level 4.8 MMOL/L (3.5-5.1) Chloride Level 106 MMOL/L (98-107) Carbon Dioxide Level 27 MMOL/L (21-32) Anion Gap 0 mmol/L (5-15) L Blood Urea Nitrogen 29 mg/dL (7-18) H Creatinine 1.3 MG/DL (0.55-1.30) Estimat Glomerular Filtration Rate 56.1 mL/min (>60) Glucose Level 191 MG/DL (74-106) H Calcium Level 7.7 MG/DL (8.5-10.1) L Total Bilirubin 0.3 MG/DL (0.2-1.0) Aspartate Amino Transf (AST/SGOT) 17 U/L (15-37) Alanine Aminotransferase (ALT/SGPT) 21 U/L (12-78) Alkaline Phosphatase 164 U/L (46-116) H Total Protein 6.3 G/DL (6.4-8.2) L Albumin 1.4 G/DL (3.4-5.0) L Globulin 4.9 g/dL Albumin/Globulin Ratio 0.3 (1.0-2.7) L Plan Problems: (1) Cellulitis of scrotum Assessment & Plan: CT reviewed. no acute surgical intervention necessary skin care and non adherent dressigns urology consult is possible IV Abx (2) Diabetic ulcer of left foot Assessment & Plan: large ulcer on left midfoot dorsal aspect. will need debridement Pending MRI needs venous and arterial duplex bilateral lower extremities IV Abx elevate extremities. Tesfaye Sears Dec 22, 2017 14:17
--- NOTE | 2017-12-22 14:50 | Diagnostic Imaging Report ---
Indication: Pain and swelling of the foot and ankle. Large dorsal surface ulcer and cellulitis. Technique: Left ankle/hindfoot imaging utilizing multiplanar T1 fast spin-echo, proton and T2 fast spin-echo with fat saturation, and STIR. Utilizing the same sequences, MRI of the left midfoot and forefoot obtained in a separate station. Comparison: None Findings: Bone marrow signal is preserved throughout the ankle, hindfoot, midfoot and forefoot. There is no evidence of acute osteomyelitis. There is ulceration along the dorsal aspect of the foot. Small foci of low signal intensity likely soft tissue gas. Thickening of the skin and subcutaneous edema are noted consistent with cellulitis. There is no evidence of abscess. IMPRESSION: Cellulitis of the foot. Ulceration along the dorsal aspect of the foot noted. No evidence of acute osteomyelitis or abscess.
[2017-12-22 16:00] VITALS: BP 126/67
[2017-12-22 20:00] VITALS: BP 131/71
[2017-12-23] VITALS: BP 135/74
[2017-12-23] MEDS: Vancomycin 750mg/NS 250ml 250 ML IVPB SCH ×2 (01:16→13:06)
[2017-12-23 04:00] VITALS: BP 143/75
[2017-12-23] MEDS: D5 1/2NS w/KCl 20mEq 1,000 ML IV SCH ×2 (04:15→16:36)
[2017-12-23 08:00] VITALS: BP 139/82
[2017-12-23] MEDS: Docusate 100mg cap ORAL SCH ×2 (08:36→20:50)
--- NOTE | 2017-12-23 08:44 | General Progress Note ---
Assessment/Plan Assessment/Plan IMPRESSION DIABETES proteinuria scrotal erythema cellulitis edema severe protein calorie malnutrition cardiomyopathy pulmonary hypertension PLAN iv antibiotics id evaluation and follow up wound care surgery appreciated may need placement- CM to assist repeat labs impression, plan, and exam edited and reviewed in detail care discussed with RN Subjective Allergies: Coded Allergies: No Known Allergies (Unverified , 12/20/17) Subjective care noted slightly improved Objective Last 24 Hour Vital Signs Date Time Temp Pulse Resp B/P (MAP) Pulse Ox O2 Delivery O2 Flow Rate FiO2 12/23/17 08:00 97.8 78 20 139/82 (101) 97 97.8 12/23/17 04:00 98.3 81 20 143/75 (97) 99 98.3 12/23/17 00:00 97.9 77 18 135/74 (94) 92 97.9 12/22/17 22:29 98.9 12/22/17 21:59 98.9 12/22/17 20:08 Room Air 12/22/17 20:00 98.9 77 20 131/71 (91) 96 98.9 12/22/17 16:00 98.4 75 20 126/67 (86) 95 98.4 12/22/17 14:38 98.3 12/22/17 12:17 98.3 12/22/17 11:57 98.3 81 20 136/73 (94) 95 98.3 12/22/17 11:18 98.6 12/22/17 09:00 Room Air Intake and Output 12/22/17 12/23/17 19:00 07:00 Intake Total 1547.5 ml 600 ml Output Total 700 ml 450 ml Balance 847.5 ml 150 ml Intake Oral 960 ml 600 ml IV Total 587.5 ml Output Urine Total 700 ml 450 ml # Bowel Movements 15 Laboratory Tests 12/22/17 14:10: Vancomycin Level Trough 11.9 Height (Feet): 5 Height (Inches): 8.00 Weight (Pounds): 210 Objective WDWN NAD clear breath sounds bilaterally without rhonchi or wheeze [id number] without MRG NABS nontender no HSM no CC edema and erythema scrotal swelling and erythema improved open wounds noted nonfocal Justyn Milner MD Dec 23, 2017 08:44
[2017-12-23] MEDS: Heparin 5000 units/ml inj SUBQ SCH ×2 (08:49→21:48)
[2017-12-23] MEDS: Piperacillin/Tazobactam 3.375 GM in D5W 110 ML IVPB SCH ×2 (08:51→16:26)
--- NOTE | 2017-12-23 10:53 | General Surgery Progress Note ---
General Surgery-Progress Note Subjective Additional Comments doing well. MRI reviewed and no osteo Objective Last 24 Hour Vital Signs Date Time Temp Pulse Resp B/P (MAP) Pulse Ox O2 Delivery O2 Flow Rate FiO2 12/23/17 08:00 Room Air 12/23/17 08:00 97.8 78 20 139/82 (101) 97 97.8 12/23/17 04:00 98.3 81 20 143/75 (97) 99 98.3 12/23/17 00:00 97.9 77 18 135/74 (94) 92 97.9 12/22/17 22:29 98.9 12/22/17 21:59 98.9 12/22/17 20:08 Room Air 12/22/17 20:00 98.9 77 20 131/71 (91) 96 98.9 12/22/17 16:00 98.4 75 20 126/67 (86) 95 98.4 12/22/17 14:38 98.3 12/22/17 12:17 98.3 12/22/17 11:57 98.3 81 20 136/73 (94) 95 98.3 12/22/17 11:18 98.6 I&O Intake and Output 12/22/17 12/23/17 19:00 07:00 Intake Total 1547.5 ml 600 ml Output Total 700 ml 450 ml Balance 847.5 ml 150 ml Intake Oral 960 ml 600 ml IV Total 587.5 ml Output Urine Total 700 ml 450 ml # Bowel Movements 15 Dressing: saturated Drains: none Cardiovascular: RSR Respiratory: clear Abdomen: soft, non-tender, present bowel sounds Extremities: edema, tenderness Laboratory Tests Test 12/22/17 14:10 Vancomycin Level Trough 11.9 ug/mL (5.0-12.0) Plan Problems: (1) Cellulitis of scrotum Assessment & Plan: CT reviewed. no acute surgical intervention necessary skin care and non adherent dressigns IV Abx (2) Diabetic ulcer of left foot Assessment & Plan: large ulcer on left midfoot dorsal aspect. MRI without osteo and only ulcer venous and arterial duplex bilateral lower extremities okay will need debridement. bedside today dressings daily IV Abx elevate extremities. Tesfaye Sears Dec 23, 2017 10:53
--- NOTE | 2017-12-23 10:58 | Infectious Diseases Prog Note ---
"Assessment/Plan Assessment/Plan antibiotics : vancomycin iv, zosyn A 1. left leg cellulitis | ulcer with staph aureus | klebsiella | providencia MRI negative for osteomyelitis 2. scrotal cellulitis | ulcer 3. ulcerative colitis 4. diabetes mellitus P 1. continue iv vancomycin, zosyn 2. will follow up cultures 3. suggest urology evaluation Subjective Constitutional: Denies: fever, chills Respiratory: Reports: shortness of breath, dry cough Gastrointestinal/Abdominal: Reports: nausea, diarrhea; Denies: vomiting Musculoskeletal: Reports: pain Allergies: Coded Allergies: No Known Allergies (Unverified , 12/20/17) Objective Vital Signs Last 24 Hour Vital Signs Date Time Temp Pulse Resp B/P (MAP) Pulse Ox O2 Delivery O2 Flow Rate FiO2 12/23/17 08:00 Room Air 12/23/17 08:00 97.8 78 20 139/82 (101) 97 97.8 12/23/17 04:00 98.3 81 20 143/75 (97) 99 98.3 12/23/17 00:00 97.9 77 18 135/74 (94) 92 97.9 12/22/17 22:29 98.9 12/22/17 21:59 98.9 12/22/17 20:08 Room Air 12/22/17 20:00 98.9 77 20 131/71 (91) 96 98.9 12/22/17 16:00 98.4 75 20 126/67 (86) 95 98.4 12/22/17 14:38 98.3 12/22/17 12:17 98.3 12/22/17 11:57 98.3 81 20 136/73 (94) 95 98.3 12/22/17 11:18 98.6 Height (Feet): 5 Height (Inches): 8.00 Weight (Pounds): 210 Respiratory/Chest: lungs clear Cardiovascular: normal rate, regular rhythm, no gallop/murmur Abdomen: soft, non tender, other - scrotal erythema, ulcer Extremities: other - + left leg erythema, foot ulcer Microbiology Date/Time Source Procedure Growth Status 12/20/17 16:15 Blood Blood Culture - Preliminary NO GROWTH AFTER 48 HOURS Resulted 12/20/17 16:00 Blood Blood Culture - Preliminary NO GROWTH AFTER 48 HOURS Resulted 12/20/17 16:10 Nasal Nares MRSA Culture - Final NO METHICILLIN RESISTANT STAPH AUREUS... Complete 12/20/17 16:10 Scrotum Gram Stain - Final Resulted 12/20/17 16:10 Wound Culture - Preliminary Gram Negative Bacillus 1 Gram Negative Bacillus 2 Staphylococcus Aureus Resulted 12/20/17 16:10 Rectum VRE Culture - Final NO VANCOMYCIN RESISTANT ENTEROCOCCUS ... Complete 12/20/17 16:10 Rectum - Final NO CARBAPENEM-RESISTANT ENTEROBACTERI... Complete 12/20/17 16:10 Ankle Left Gram Stain - Final Resulted 12/20/17 16:10 Wound Culture - Preliminary Providencia Rettgeri Klebsiella Pneumoniae Staphylococcus Aureus Resulted Laboratory Tests Test 12/22/17 14:10 Vancomycin Level Trough 11.9 ug/mL (5.0-12.0) Current Medications Medications (Trade) Dose Ordered Sig/Bandar Route PRN Reason Start Time Stop Time Status Last Admin Dose Admin Acetaminophen (Tylenol) 650 mg Q4H PRN ORAL Mild Pain (Pain Scale 1-3) 12/21/17 12:30 01/19/18 12:29 12/22/17 11:18 Acetaminophen (Tylenol) 650 mg Q4H PRN ORAL Mild Pain/Temp > 100.5 12/21/17 12:30 01/19/18 12:29 Al Hydroxide/Mg Hydroxide (Mylanta II) 30 ml Q6H PRN ORAL dyspepsia 12/21/17 12:30 01/19/18 12:29 Dextrose (Dextrose 50%) 25 ml STAT PRN IV Hypoglycemia 12/21/17 12:30 01/19/18 12:29 Dextrose (Dextrose 50%) 50 ml STAT PRN IV Hypoglycemia 12/21/17 12:30 01/19/18 12:29 Dextrose/ Electrolytes 1,000 ml @ 75 mls/hr [id number] IV 12/21/17 12:15 01/19/18 23:38 12/22/17 15:37 Diphenhydramine HCl (Benadryl) 25 mg Q6H PRN ORAL Itching/Pruritis 12/21/17 12:30 01/19/18 12:29 Docusate Sodium (Colace) 100 mg EVERY 12 HOURS ORAL 12/21/17 21:00 01/20/18 08:59 12/22/17 22:00 Heparin Sodium (Porcine) (Heparin 5000 units/ml) 5,000 units EVERY 12 HOURS SUBQ 12/21/17 21:00 01/19/18 22:59 12/23/17 08:49 Magnesium Hydroxide (Mom) 30 ml HSPRN PRN ORAL Constipation 12/21/17 12:30 01/19/18 12:29 Morphine Sulfate (Morphine Sulfate) 2 mg Q4H PRN IVP MODERATE PAIN (PAIN SCALE 4-6) 12/21/17 15:00 12/27/17 22:59 12/22/17 21:59 Morphine Sulfate (Morphine Sulfate) 4 mg Q4H PRN IVP for pain 12/21/17 12:30 12/27/17 12:29 Ondansetron HCl (Zofran) 4 mg Q6H PRN IVP Nausea & Vomiting 12/21/17 12:30 01/19/18 12:29 Pantoprazole (Protonix) 40 mg DAILY ORAL 12/22/17 09:00 01/20/18 08:59 12/22/17 08:55 Piperacillin Sod/ Tazobactam Sod 3.375 gm/Dextrose 110 ml @ 27.5 mls/hr Q8H IVPB 12/21/17 16:00 12/28/17 00:00 12/23/17 08:51 Temazepam (Restoril) 15 mg HSPRN PRN ORAL Insomnia 12/21/17 21:00 12/27/17 20:59 Vancomycin HCl (Vanco rx to dose) 1 ea DAILY PRN MISC Per rx protocol 12/22/17 09:00 01/19/18 23:44 Vancomycin/Sodium Chloride 250 ml @ 166.667 mls/hr Q12H IVPB 12/21/17 13:00 12/26/17 00:59 12/23/17 01:16 KANWAL DE LA CRUZ Dec 23, 2017 10:58"
--- NOTE | 2017-12-23 10:58 | Operative Note - PDOC ---
Operative Note Operative Note Date of Operation/Procedure: Dec 23, 2017 Pre-op Diagnosis: left foot ulcer with necrotic tissue Procedure: excisional debridement of left foot ulcer Post-op Diagnosis: same as pre-op Surgeon: alannah Specimen: yes - left foot tissue debridement Complications: none Condition: stable Estimated Blood Loss: minimal Drains: none Implant(s) used?: No Indications for Procedure 62M chronic left foot ulcer that has not been cared for prior. states he has just monitored it and allowed necrotic tissue to form. MRI performed and fortunately no osteo noted. necrotic tissue noted in ulcer size 10cm x 9cm with unknown depth. risks, benefits, and alternatives discussed in detail. consent obtained. Description of Procedure patient made comfortable at bedside. discussed anesthetic use with patient and he states he does not have sensation to most of his foot. site cleaned, prepped and draped in standard surgical fashion. using surgical instruments the necrotic tissue of the left dorsal foot ulcer were excised down to healthy viable tissue. the necrotic tissue went down to tendon but not bone. good back bleeding tissue identified. specimen sent to pathology. non adherent dressings and kerlix applied. patient tolerated well. will plan for daily dressing changes. Tesfaye Sears Dec 23, 2017 10:58
--- NOTE | 2017-12-23 11:38 | Pre-Procedure Note/Attestation ---
Pre-Procedure Note/Attestation Complete Prior to Procedure Planned Procedure: right Procedure Narrative: US guided thoracentesis Indications for Procedure Pre-Operative Diagnosis: pleural effusion Attestation I attest that I discussed the nature of the procedure; its benefits; risks and complications; and alternatives (and the risks and benefits of such alternatives ), prior to the procedure, with the patient (or the patient's legal admitting representative). I attest that I re-evaluated the patient just prior to the surgery and that there has been no change in the patient's H&P, except as documented below: Serge Barrios M.D. Dec 23, 2017 11:38
--- NOTE | 2017-12-23 13:47 | Diagnostic Imaging Report ---
APPROVED REPORT CPT Code: 34387 Present Symptoms Lower Extremity Edema: Comments: Cellulitis BILATERAL: Imaging reveals a patent deep venous system bilaterally. There is no evidence of thrombus within the femoral, popliteal or tibial segments. The greater saphenous veins are also within normal limits. Doppler indicates normal spontaneous flow within these segments.
[2017-12-23 16:00] VITALS: BP 111/58
[2017-12-23] MEDS: Morphine Sulfate 4mg/ml Inj IVP PRN (16:55)
[2017-12-23 20:46] VITALS: BP 138/70
[2017-12-24] VITALS: BP 140/87
[2017-12-24] MEDS: Piperacillin/Tazobactam 3.375 GM in D5W 110 ML IVPB SCH ×3 (02:24→18:29)
[2017-12-24] MEDS: Vancomycin 750mg/NS 250ml 250 ML IVPB SCH ×2 (02:30→14:45)
[2017-12-24 04:30] VITALS: BP 139/40
[2017-12-24 06:48] LABS: BASOPHILS % (AUTO) 0.4 % (0.0-2.0); EOSINOPHILS % (AUTO) 0.6 % (0.0-3.0); HEMATOCRIT 35.7 % (42.0-52.0); LYMPHOCYTES % (AUTO) 9.9 % (20.0-45.0); MEAN CORPUSCULAR VOLUME 83 FL (80-99); MONOCYTES % (AUTO) 5.3 % (1.0-10.0); NEUTROPHILS % (AUTO) 83.8 % (45.0-75.0); PLATELET COUNT 423 K/UL (150-450); RED BLOOD COUNT 4.32 M/UL (4.70-6.10); RED CELL DISTRIBUTION WIDTH 14.3 % (11.6-14.8); WHITE BLOOD COUNT 13.8 K/UL (4.8-10.8)
[2017-12-24] MEDS: D5 1/2NS w/KCl 20mEq 1,000 ML IV SCH (06:55)
[2017-12-24 07:30] LABS: ANION GAP 4 mmol/L (5-15); BLOOD UREA NITROGEN 32 mg/dL (7-18); CALCIUM 8.3 MG/DL (8.5-10.1); CARBON DIOXIDE 26 MMOL/L (21-32); CHLORIDE 108 MMOL/L (98-107); CREATININE 1.3 MG/DL (0.55-1.30); SODIUM 138 MMOL/L (136-145)
[2017-12-24 07:48] LABS: POTASSIUM 6.4 MMOL/L (3.5-5.1)
[2017-12-24 08:00] VITALS: BP 161/81
[2017-12-24] MEDS: Docusate 100mg cap ORAL SCH ×2 (09:00→21:48)
[2017-12-24] MEDS ORDERED: Sodium Polystyrene Sulfonate 15gm Powder ORAL ONE (09:00)
[2017-12-24] MEDS: Heparin 5000 units/ml inj SUBQ SCH ×2 (10:09→21:53)
--- NOTE | 2017-12-24 11:12 | General Progress Note ---
Assessment/Plan Assessment/Plan IMPRESSION DIABETES proteinuria scrotal erythema cellulitis edema severe protein calorie malnutrition cardiomyopathy pulmonary hypertension PLAN iv antibiotics id evaluation/clearance and follow up wound care surgery appreciated may need placement- CM to assist repeat labs impression, plan, and exam edited and reviewed in detail care discussed with RN Subjective Allergies: Coded Allergies: No Known Allergies (Unverified , 12/20/17) Subjective care noted slightly improved Objective Last 24 Hour Vital Signs Date Time Temp Pulse Resp B/P (MAP) Pulse Ox O2 Delivery O2 Flow Rate FiO2 12/24/17 08:30 Room Air 12/24/17 08:00 97.1 78 20 161/81 (107) 94 97.1 12/24/17 04:30 97.9 74 20 139/40 (73) 90 97.9 12/24/17 00:00 98.7 79 20 140/87 (104) 91 98.7 12/23/17 21:00 Room Air 12/23/17 20:46 98.2 78 20 138/70 (92) 92 98.2 12/23/17 17:25 98.1 12/23/17 16:55 98.1 12/23/17 16:00 98.1 82 20 111/58 (75) 91 98.1 Intake and Output 12/23/17 12/24/17 19:00 07:00 Intake Total 220 ml Output Total 400 ml 700 ml Balance -180 ml -700 ml Intake Oral 220 ml Output Urine Total 400 ml 700 ml # Bowel Movements 1 Laboratory Tests 12/24/17 06:10: White Blood Count 13.8H, Red Blood Count 4.32L, Hemoglobin 11.0L, Hematocrit 35.7L, Mean Corpuscular Volume 83, Mean Corpuscular Hemoglobin 25.5L, Mean Corpuscular Hemoglobin Concent 30.9L, Red Cell Distribution Width 14.3, Platelet Count 423, Mean Platelet Volume 6.3L, Neutrophils (%) (Auto) 83.8H, Lymphocytes (%) (Auto) 9.9L, Monocytes (%) (Auto) 5.3, Eosinophils (%) (Auto) 0.6, Basophils (%) (Auto) 0.4, Sodium Level 138, Potassium Level 6.4*H, Chloride Level 108H, Carbon Dioxide Level 26, Anion Gap 4L, Blood Urea Nitrogen 32H, Creatinine 1.3, Estimat Glomerular Filtration Rate 56.1, Glucose Level 194H , Calcium Level 8.3L Height (Feet): 5 Height (Inches): 8.00 Weight (Pounds): 190 Objective WDWN NAD clear breath sounds bilaterally without rhonchi or wheeze [id number] without MRG NABS nontender no HSM no CC edema and erythema scrotal swelling and erythema improved open wounds noted nonfocal Justyn Milner MD Dec 24, 2017 11:12
[2017-12-24] MEDS: D5 1/2NS 1,000 ML IV SCH (11:56)
[2017-12-24 12:00] VITALS: BP 164/87
[2017-12-24] MEDS: Carvedilol 6.25mg Tab ORAL SCH ×2 (14:46→21:48)
[2017-12-24 16:00] VITALS: BP 160/79
--- NOTE | 2017-12-24 17:30 | Consultation ---
DATE OF CONSULTATION: 12/24/2017 CONSULTING PHYSICIAN: Rocky Petit M.D. REFERRING PHYSICIAN: Justyn Milner M.D. REASON FOR CONSULTATION: 1. Acute kidney injury. 2. Hyperkalemia. HISTORY OF PRESENT ILLNESS: The patient is a pleasant, 62-year-old gentleman who was brought in for further evaluation and care of skin rash, scrotal edema, and erythema along with left foot ulcer. Infectious Disease and General Surgery have been consulting and managing. It was noted that the patient had high potassium of 6.4 and creatinine of 1.3. The patient had already been treated with Kayexalate. He denies any current chest pain, shortness of breath, or abdominal cramping. Feels otherwise well. PAST MEDICAL HISTORY: Positive for diabetes. PAST SOCIAL HISTORY: Positive tobacco. No alcohol. No illicit drug use. ALLERGIES: No known drug allergies. PAST SURGICAL HISTORY: Noncontributory. REVIEW OF SYSTEMS: NEUROLOGIC: The patient denies headache, change in vision, syncope, or presyncopal episodes. CARDIOVASCULAR: No current chest pain, palpitations, or angina. PULMONARY: No difficulty breathing, productive cough, or sputum. GASTROINTESTINAL/GENITOURINARY: No change in her bowels. No nausea, vomiting, or diarrhea. ENDOCRINOLOGIC: No night sweats, fevers, or chills. LABORATORY AND DIAGNOSTIC DATA: Labs dated 12/24/2017, potassium 6.4, sodium 138, creatinine 1.3, bicarbonate 26, calcium 8.3. White cell count 13.8, hemoglobin 11, and platelet count 423. PHYSICAL EXAMINATION: VITAL SIGNS: Blood pressure 139/40, respiratory rate 20, pulse 74, temperature 97.9. GENERAL: The patient awake, alert, not in distress. HEENT: Extraocular muscles intact. No lymphadenopathy noted. CARDIOVASCULAR: S1 and S2. No rubs or gallops. PULMONARY: Clear to auscultation bilaterally. No rales, rhonchi or wheezes. ABDOMINAL: Nondistended and nontender. EXTREMITIES: No edema noted. ASSESSMENT AND PLAN: 1. Hyperkalemia, potassium 6.4, was treated already with Kayexalate. At this time, we will discontinue IV fluids with potassium. We will recheck potassium at noon. If potassium remains elevated post discontinuation of potassium fluids and Kayexalate, we will treat the patient with aggressive hydration and diuretics. 2. Acute kidney injury. Creatinine 1.3. Most likely secondary to component of acute tubular necrosis from inflammatory cytokines damaging proximal tubules. Continue IV antibiotics for necrotic foot along with cellulitis of the scrotum and left mid foot ulcer. 3. Diabetic ulcer of the left foot and cellulitis of scrotum. Defer antibiotic management to Infectious Disease along with general surgical care. I would take this opportunity to thank Dr. Milner. I will continue to follow this patient on a daily basis. Rocky Petit MD DR: CLEMENT JOB#: [id number] CC:
--- NOTE | 2017-12-24 17:42 | General Surgery Progress Note ---
General Surgery-Progress Note Subjective Procedure Performed excisional debridement of left foot ulcer Symptoms: improved, tolerating diet, voiding well, BM Additional Comments no acute events. doing better. edema improved. overall improving. Objective Last 24 Hour Vital Signs Date Time Temp Pulse Resp B/P (MAP) Pulse Ox O2 Delivery O2 Flow Rate FiO2 12/24/17 14:46 73 164/87 12/24/17 12:00 97.7 73 22 164/87 (112) 96 97.7 12/24/17 08:30 Room Air 12/24/17 08:00 97.1 78 20 161/81 (107) 94 97.1 12/24/17 04:30 97.9 74 20 139/40 (73) 90 97.9 12/24/17 00:00 98.7 79 20 140/87 (104) 91 98.7 12/23/17 21:00 Room Air 12/23/17 20:46 98.2 78 20 138/70 (92) 92 98.2 I&O Intake and Output 12/23/17 12/24/17 18:59 06:59 Intake Total 220 ml Output Total 400 ml 700 ml Balance -180 ml -700 ml Intake Oral 220 ml Output Urine Total 400 ml 700 ml # Bowel Movements 1 Dressing: saturated Wound: clean Drains: none Cardiovascular: RSR Respiratory: clear Abdomen: soft Extremities: edema Laboratory Tests Test 12/24/17 06:10 12/24/17 12:50 White Blood Count 13.8 K/UL (4.8-10.8) H Red Blood Count 4.32 M/UL (4.70-6.10) L Hemoglobin 11.0 G/DL (14.2-18.0) L Hematocrit 35.7 % (42.0-52.0) L Mean Corpuscular Volume 83 FL (80-99) Mean Corpuscular Hemoglobin 25.5 PG (27.0-31.0) L Mean Corpuscular Hemoglobin Concent 30.9 G/DL (32.0-36.0) L Red Cell Distribution Width 14.3 % (11.6-14.8) Platelet Count 423 K/UL (150-450) Mean Platelet Volume 6.3 FL (6.5-10.1) L Neutrophils (%) (Auto) 83.8 % (45.0-75.0) H Lymphocytes (%) (Auto) 9.9 % (20.0-45.0) L Monocytes (%) (Auto) 5.3 % (1.0-10.0) Eosinophils (%) (Auto) 0.6 % (0.0-3.0) Basophils (%) (Auto) 0.4 % (0.0-2.0) Sodium Level 138 MMOL/L (136-145) Potassium Level 6.4 MMOL/L (3.5-5.1) *H 5.3 MMOL/L (3.5-5.1) H Chloride Level 108 MMOL/L (98-107) H Carbon Dioxide Level 26 MMOL/L (21-32) Anion Gap 4 mmol/L (5-15) L Blood Urea Nitrogen 32 mg/dL (7-18) H Creatinine 1.3 MG/DL (0.55-1.30) Estimat Glomerular Filtration Rate 56.1 mL/min (>60) Glucose Level 194 MG/DL (74-106) H Calcium Level 8.3 MG/DL (8.5-10.1) L Plan Problems: (1) Cellulitis of scrotum Assessment & Plan: CT reviewed. no acute surgical intervention necessary skin care and non adherent dressigns IV Abx (2) Diabetic ulcer of left foot Assessment & Plan: large ulcer on left midfoot dorsal aspect. MRI without osteo and only ulcer venous and arterial duplex bilateral lower extremities okay s/p debridement. doing well. edema improving dressings daily IV Abx elevate extremities. Tesfaye Sears Dec 24, 2017 17:42
[2017-12-24 20:00] VITALS: BP 160/83
[2017-12-25] VITALS: BP 141/67
[2017-12-25] MEDS: D5 1/2NS 1,000 ML IV SCH ×2 (00:20→13:40)
[2017-12-25] MEDS: Vancomycin 750mg/NS 250ml 250 ML IVPB SCH (00:45)
[2017-12-25] MEDS: Piperacillin/Tazobactam 3.375 GM in D5W 110 ML IVPB SCH ×2 (02:38→09:35)
[2017-12-25 04:00] VITALS: BP 143/72
[2017-12-25 08:00] VITALS: BP 163/72
[2017-12-25] MEDS: Carvedilol 6.25mg Tab ORAL SCH ×2 (08:30→20:40)
[2017-12-25] MEDS: Heparin 5000 units/ml inj SUBQ SCH ×2 (08:35→20:39)
[2017-12-25] MEDS: Docusate 100mg cap ORAL SCH ×2 (08:40→20:40)
--- NOTE | 2017-12-25 08:44 | General Progress Note ---
Assessment/Plan Assessment/Plan IMPRESSION DIABETES proteinuria scrotal erythema cellulitis edema severe protein calorie malnutrition cardiomyopathy pulmonary hypertension PLAN iv antibiotics id evaluation/clearance and follow up wound care surgery appreciated may need placement- CM to assist repeat labs impression, plan, and exam edited and reviewed in detail care discussed with RN Subjective Allergies: Coded Allergies: No Known Allergies (Unverified , 12/20/17) Subjective care noted awak Objective Last 24 Hour Vital Signs Date Time Temp Pulse Resp B/P (MAP) Pulse Ox O2 Delivery O2 Flow Rate FiO2 12/25/17 08:30 72 163/72 12/25/17 04:00 97.3 68 19 143/72 (95) 95 97.3 12/25/17 00:00 97.7 72 20 141/67 (91) 96 97.7 12/24/17 21:48 84 160/83 12/24/17 21:00 Room Air 12/24/17 20:00 97.4 84 21 160/83 (108) 94 97.4 12/24/17 16:00 97.9 74 22 160/79 (106) 99 97.9 12/24/17 14:46 73 164/87 12/24/17 12:00 97.7 73 22 164/87 (112) 96 97.7 Intake and Output 12/24/17 12/25/17 19:00 07:00 Intake Total 1060 ml 470.000 ml Output Total 350 ml Balance 1060 ml 120.000 ml Intake Oral 700 ml IV Total 360 ml 470.000 ml Output Urine Total 350 ml # Bowel Movements 2 Laboratory Tests 12/24/17 12:50: Potassium Level 5.3H Height (Feet): 5 Height (Inches): 8.00 Weight (Pounds): 190 Objective WDWN NAD clear breath sounds bilaterally without rhonchi or wheeze [id number] without MRG NABS nontender no HSM no CC edema and erythema scrotal swelling and erythema improved open wounds noted nonfocal Justyn Milner MD Dec 25, 2017 08:44
--- NOTE | 2017-12-25 09:13 | Nephrology Progress Note ---
Assessment/Plan Assessment/Plan 1. MARY GRACE- Cr 1.3 from volume depeltion and underlying infection - patient declining any lab draws 2. Hyperk+ - K+ had improved yesterday. Patient declining any further lab draws 3. LE foot InFx- Abx Subjective Date patient seen: Dec 25, 2017 Time patient seen: 09:11 ROS Limited/Unobtainable: No Allergies: Coded Allergies: No Known Allergies (Unverified , 12/20/17) Subjective Patient agitated. Declining any lab draws Objective Last 24 Hour Vital Signs Date Time Temp Pulse Resp B/P (MAP) Pulse Ox O2 Delivery O2 Flow Rate FiO2 12/25/17 08:30 72 163/72 12/25/17 04:00 97.3 68 19 143/72 (95) 95 97.3 12/25/17 00:00 97.7 72 20 141/67 (91) 96 97.7 12/24/17 21:48 84 160/83 12/24/17 21:00 Room Air 12/24/17 20:00 97.4 84 21 160/83 (108) 94 97.4 12/24/17 16:00 97.9 74 22 160/79 (106) 99 97.9 12/24/17 14:46 73 164/87 12/24/17 12:00 97.7 73 22 164/87 (112) 96 97.7 Intake and Output 12/24/17 12/25/17 19:00 07:00 Intake Total 1060 ml 470.000 ml Output Total 350 ml Balance 1060 ml 120.000 ml Intake Oral 700 ml IV Total 360 ml 470.000 ml Output Urine Total 350 ml # Bowel Movements 2 Laboratory Tests 12/24/17 12:50: Potassium Level 5.3H Height (Feet): 5 Height (Inches): 8.00 Weight (Pounds): 190 General Appearance: mild distress EENT: normal ENT inspection Neck: normal alignment, supple Cardiovascular: normal rate, regular rhythm Respiratory/Chest: lungs clear, normal breath sounds Abdomen: non tender, soft Edema: no edema noted Arm (L), no edema noted Arm (R), no edema noted Leg (L), no edema noted Leg (R), no edema noted Pedal (L), no edema noted Pedal (R), no edema noted Generalized Rocky Petit M.D. Dec 25, 2017 09:13
--- NOTE | 2017-12-25 11:44 | Infectious Diseases Prog Note ---
"Assessment/Plan Assessment/Plan antibiotics : vancomycin iv, zosyn A 1. left leg cellulitis | ulcer with staph aureus | klebsiella | providencia s/p debridement MRI negative for osteomyelitis 2. scrotal cellulitis | ulcer 3. ulcerative colitis 4. diabetes mellitus P 1. d/c iv vancomycin, zosyn 2. start po levoquin 3. will follow up cultures Subjective ROS Limited/Unobtainable: Yes Allergies: Coded Allergies: No Known Allergies (Unverified , 12/20/17) Objective Vital Signs Last 24 Hour Vital Signs Date Time Temp Pulse Resp B/P (MAP) Pulse Ox O2 Delivery O2 Flow Rate FiO2 12/25/17 09:00 Room Air 12/25/17 08:30 72 163/72 12/25/17 08:00 97.9 72 19 163/72 (102) 97 97.9 12/25/17 04:00 97.3 68 19 143/72 (95) 95 97.3 12/25/17 00:00 97.7 72 20 141/67 (91) 96 97.7 12/24/17 21:48 84 160/83 12/24/17 21:00 Room Air 12/24/17 20:00 97.4 84 21 160/83 (108) 94 97.4 12/24/17 16:00 97.9 74 22 160/79 (106) 99 97.9 12/24/17 14:46 73 164/87 12/24/17 12:00 97.7 73 22 164/87 (112) 96 97.7 Height (Feet): 5 Height (Inches): 8.00 Weight (Pounds): 190 Respiratory/Chest: lungs clear Cardiovascular: normal rate, regular rhythm, no gallop/murmur Abdomen: soft, non tender Extremities: no edema, other - left foot in dressings Laboratory Tests Test 12/24/17 12:50 Potassium Level 5.3 MMOL/L (3.5-5.1) H Current Medications Medications (Trade) Dose Ordered Sig/Bandar Route PRN Reason Start Time Stop Time Status Last Admin Dose Admin Acetaminophen (Tylenol) 650 mg Q4H PRN ORAL Mild Pain (Pain Scale 1-3) 12/21/17 12:30 01/19/18 12:29 12/22/17 11:18 Acetaminophen (Tylenol) 650 mg Q4H PRN ORAL Mild Pain/Temp > 100.5 12/21/17 12:30 01/19/18 12:29 Al Hydroxide/Mg Hydroxide (Mylanta II) 30 ml Q6H PRN ORAL dyspepsia 12/21/17 12:30 01/19/18 12:29 Carvedilol (Coreg) 6.25 mg EVERY 12 HOURS ORAL 12/24/17 13:15 01/23/18 13:14 12/25/17 08:30 Clonidine HCl (Catapres Tab) 0.1 mg EVERY 8 HOURS PRN ORAL For High Blood Pressure 12/24/17 13:15 01/23/18 13:14 Dextrose (Dextrose 50%) 25 ml STAT PRN IV Hypoglycemia 12/21/17 12:30 01/19/18 12:29 Dextrose (Dextrose 50%) 50 ml STAT PRN IV Hypoglycemia 12/21/17 12:30 01/19/18 12:29 Dextrose/Sodium Chloride 1,000 ml @ 75 mls/hr [id number] IV 12/24/17 11:00 01/23/18 10:59 12/24/17 11:56 Diphenhydramine HCl (Benadryl) 25 mg Q6H PRN ORAL Itching/Pruritis 12/21/17 12:30 01/19/18 12:29 Docusate Sodium (Colace) 100 mg EVERY 12 HOURS ORAL 12/21/17 21:00 01/20/18 08:59 12/24/17 21:48 Heparin Sodium (Porcine) (Heparin 5000 units/ml) 5,000 units EVERY 12 HOURS SUBQ 12/21/17 21:00 01/19/18 22:59 12/25/17 08:35 Magnesium Hydroxide (Mom) 30 ml HSPRN PRN ORAL Constipation 12/21/17 12:30 01/19/18 12:29 Morphine Sulfate (Morphine Sulfate) 2 mg Q4H PRN IVP MODERATE PAIN (PAIN SCALE 4-6) 12/21/17 15:00 12/27/17 22:59 12/23/17 16:55 Morphine Sulfate (Morphine Sulfate) 4 mg Q4H PRN IVP for pain 12/21/17 12:30 12/27/17 12:29 Ondansetron HCl (Zofran) 4 mg Q6H PRN IVP Nausea & Vomiting 12/21/17 12:30 01/19/18 12:29 Pantoprazole (Protonix) 40 mg DAILY ORAL 12/22/17 09:00 01/20/18 08:59 12/25/17 08:30 Piperacillin Sod/ Tazobactam Sod 3.375 gm/Dextrose 110 ml @ 27.5 mls/hr Q8H IVPB 12/21/17 16:00 12/28/17 00:00 12/25/17 09:35 Temazepam (Restoril) 15 mg HSPRN PRN ORAL Insomnia 12/21/17 21:00 12/27/17 20:59 Vancomycin HCl (Vanco rx to dose) 1 ea DAILY PRN MISC Per rx protocol 12/22/17 09:00 01/19/18 23:44 Vancomycin/Sodium Chloride 250 ml @ 166.667 mls/hr Q12H IVPB 12/21/17 13:00 12/26/17 00:59 12/25/17 00:45 KANWAL DE LA CRUZ Dec 25, 2017 11:44"
[2017-12-25 12:00] VITALS: BP 150/81
[2017-12-25] MEDS: Levofloxacin 500mg tab ORAL SCH (14:05)
[2017-12-25] MEDS: Morphine Sulfate 4mg/ml Inj IVP PRN (14:58)
--- NOTE | 2017-12-25 15:10 | General Surgery Progress Note ---
General Surgery-Progress Note Subjective Procedure Performed excisional debridement of left foot ulcer Symptoms: improved Additional Comments edema improved. wounds improving. overall better. Objective Last 24 Hour Vital Signs Date Time Temp Pulse Resp B/P (MAP) Pulse Ox O2 Delivery O2 Flow Rate FiO2 12/25/17 12:00 97.7 71 21 150/81 (104) 95 97.7 12/25/17 09:00 Room Air 12/25/17 08:30 72 163/72 12/25/17 08:00 97.9 72 19 163/72 (102) 97 97.9 12/25/17 04:00 97.3 68 19 143/72 (95) 95 97.3 12/25/17 00:00 97.7 72 20 141/67 (91) 96 97.7 12/24/17 21:48 84 160/83 12/24/17 21:00 Room Air 12/24/17 20:00 97.4 84 21 160/83 (108) 94 97.4 12/24/17 16:00 97.9 74 22 160/79 (106) 99 97.9 I&O Intake and Output 12/24/17 12/25/17 19:00 07:00 Intake Total 1060 ml 470.000 ml Output Total 350 ml Balance 1060 ml 120.000 ml Intake Oral 700 ml IV Total 360 ml 470.000 ml Output Urine Total 350 ml # Bowel Movements 2 Dressing: saturated Wound: clean Cardiovascular: RSR Respiratory: clear Abdomen: soft, flat Extremities: edema Plan Problems: (1) Cellulitis of scrotum Assessment & Plan: CT reviewed. no acute surgical intervention necessary skin care and non adherent dressigns IV Abx (2) Diabetic ulcer of left foot Assessment & Plan: large ulcer on left midfoot dorsal aspect. MRI without osteo and only ulcer venous and arterial duplex bilateral lower extremities okay s/p debridement. doing well. edema improving dressings daily IV Abx elevate extremities. Additional Comments okay to d/c from surgical standpoint Tesfaye Sears Dec 25, 2017 15:10
[2017-12-25 16:00] VITALS: BP 156/81
[2017-12-25 20:00] VITALS: BP 160/82
[2017-12-26] VITALS: BP 118/72
[2017-12-26] MEDS: D5 1/2NS 1,000 ML IV SCH (00:23)
[2017-12-26] MEDS: Morphine Sulfate 4mg/ml Inj IVP PRN (00:26)
[2017-12-26 04:00] VITALS: BP 137/58
[2017-12-26 07:26] LABS: ANION GAP 6 mmol/L (5-15); BLOOD UREA NITROGEN 25 mg/dL (7-18); CALCIUM 7.6 MG/DL (8.5-10.1); CARBON DIOXIDE 25 MMOL/L (21-32); CHLORIDE 106 MMOL/L (98-107); CREATININE 1.1 MG/DL (0.55-1.30); POTASSIUM 3.8 MMOL/L (3.5-5.1); SODIUM 137 MMOL/L (136-145)
[2017-12-26 08:00] VITALS: BP 135/75
[2017-12-26] MEDS: Levofloxacin 500mg tab ORAL SCH (09:59)
[2017-12-26] MEDS: Docusate 100mg cap ORAL SCH (09:59)
[2017-12-26] MEDS: Heparin 5000 units/ml inj SUBQ SCH (09:59)
[2017-12-26] MEDS: Carvedilol 6.25mg Tab ORAL SCH (09:59)
--- NOTE | 2017-12-26 11:19 | Nephrology Progress Note ---
Assessment/Plan Assessment/Plan 1. MARY GRACE- resolved, Cr 1.1 - DC jauregui 2. Hyperk+ - resolved 3. LE foot InFx- Abx Subjective Date patient seen: Dec 26, 2017 Time patient seen: 11:17 ROS Limited/Unobtainable: No Constitutional: Reports: weakness Allergies: Coded Allergies: No Known Allergies (Unverified , 12/20/17) Subjective Patient calmer today and feeling better Objective Last 24 Hour Vital Signs Date Time Temp Pulse Resp B/P (MAP) Pulse Ox O2 Delivery O2 Flow Rate FiO2 12/26/17 09:59 74 135/75 12/26/17 09:00 Room Air 12/26/17 08:00 98.0 74 19 135/75 (95) 98 98.0 12/26/17 04:00 96.6 75 18 137/58 (84) 92 96.6 12/26/17 00:56 97.1 12/26/17 00:26 97.1 12/26/17 00:00 97.7 74 20 118/72 (87) 92 97.7 12/25/17 20:58 Room Air 12/25/17 20:40 67 156/81 12/25/17 20:00 97.1 74 18 160/82 (108) 94 97.1 12/25/17 16:00 97.9 67 21 156/81 (106) 97 97.9 12/25/17 12:00 97.7 71 21 150/81 (104) 95 97.7 Intake and Output 12/25/17 12/26/17 19:00 07:00 Intake Total 1485 ml 785 ml Output Total 300 ml 300 ml Balance 1185 ml 485 ml Intake Oral 960 ml IV Total 525 ml 785 ml Output Urine Total 300 ml 300 ml # Bowel Movements 4 Laboratory Tests 12/26/17 06:25: Sodium Level 137, Potassium Level 3.8, Chloride Level 106, Carbon Dioxide Level 25, Anion Gap 6, Blood Urea Nitrogen 25H, Creatinine 1.1, Estimat Glomerular Filtration Rate > 60, Glucose Level 193H, Calcium Level 7.6L Height (Feet): 5 Height (Inches): 8.00 Weight (Pounds): 190 General Appearance: no apparent distress, alert EENT: PERRL/EOMI, normal ENT inspection Neck: normal alignment, supple Cardiovascular: regular rhythm Respiratory/Chest: lungs clear, normal breath sounds Abdomen: non tender, soft Edema: no edema noted Arm (L), no edema noted Arm (R), no edema noted Leg (L), no edema noted Leg (R), no edema noted Pedal (L), no edema noted Pedal (R), no edema noted Generalized Rocky Petit M.D. Dec 26, 2017 11:19
[2017-12-26 11:55] VITALS: BP 156/76
--- NOTE | 2017-12-26 12:45 | General Progress Note ---
Assessment/Plan Assessment/Plan IMPRESSION DIABETES proteinuria scrotal erythema cellulitis edema severe protein calorie malnutrition cardiomyopathy pulmonary hypertension PLAN iv antibiotics dcd and now on levaquin id evaluation/clearance noted wound care surgery appreciated dc to snf impression, plan, and exam edited and reviewed in detail care discussed with RN patient refusing to go to snf and wants to be discharged to self aware that he needs ongoing wound monitoring but refuses patient alert and able to make his own decisions Subjective Allergies: Coded Allergies: No Known Allergies (Unverified , 12/20/17) Subjective care noted awake and comfortable Objective Last 24 Hour Vital Signs Date Time Temp Pulse Resp B/P (MAP) Pulse Ox O2 Delivery O2 Flow Rate FiO2 12/26/17 11:55 98.1 68 21 156/76 (102) 96 98.1 12/26/17 09:59 74 135/75 12/26/17 09:00 Room Air 12/26/17 08:00 98.0 74 19 135/75 (95) 98 98.0 12/26/17 04:00 96.6 75 18 137/58 (84) 92 96.6 12/26/17 00:56 97.1 12/26/17 00:26 97.1 12/26/17 00:00 97.7 74 20 118/72 (87) 92 97.7 12/25/17 20:58 Room Air 12/25/17 20:40 67 156/81 12/25/17 20:00 97.1 74 18 160/82 (108) 94 97.1 12/25/17 16:00 97.9 67 21 156/81 (106) 97 97.9 Intake and Output 12/25/17 12/26/17 19:00 07:00 Intake Total 1485 ml 785 ml Output Total 300 ml 300 ml Balance 1185 ml 485 ml Intake Oral 960 ml IV Total 525 ml 785 ml Output Urine Total 300 ml 300 ml # Bowel Movements 4 Laboratory Tests 12/26/17 06:25: Sodium Level 137, Potassium Level 3.8, Chloride Level 106, Carbon Dioxide Level 25, Anion Gap 6, Blood Urea Nitrogen 25H, Creatinine 1.1, Estimat Glomerular Filtration Rate > 60, Glucose Level 193H, Calcium Level 7.6L Height (Feet): 5 Height (Inches): 8.00 Weight (Pounds): 190 Objective WDWN NAD clear breath sounds bilaterally without rhonchi or wheeze [id number] without MRG NABS nontender no HSM no CC edema and erythema improved scrotal swelling and erythema open wounds noted nonfocal Justyn Milner MD Dec 26, 2017 12:45
[2017-12-26] MEDS ORDERED: D5 1/2NS 1000ml IV ONE (14:21)
--- NOTE | 2017-12-26 14:43 | General Surgery Progress Note ---
General Surgery-Progress Note Subjective Procedure Performed excisional debridement of left foot ulcer Additional Comments no acute events. does not want to leave hospital. wants to stay here for years and likes it here as per patient. Objective Last 24 Hour Vital Signs Date Time Temp Pulse Resp B/P (MAP) Pulse Ox O2 Delivery O2 Flow Rate FiO2 12/26/17 11:55 98.1 68 21 156/76 (102) 96 98.1 12/26/17 09:59 74 135/75 12/26/17 09:00 Room Air 12/26/17 08:00 98.0 74 19 135/75 (95) 98 98.0 12/26/17 04:00 96.6 75 18 137/58 (84) 92 96.6 12/26/17 00:56 97.1 12/26/17 00:26 97.1 12/26/17 00:00 97.7 74 20 118/72 (87) 92 97.7 12/25/17 20:58 Room Air 12/25/17 20:40 67 156/81 12/25/17 20:00 97.1 74 18 160/82 (108) 94 97.1 12/25/17 16:00 97.9 67 21 156/81 (106) 97 97.9 I&O Intake and Output 12/25/17 12/26/17 19:00 07:00 Intake Total 1485 ml 785 ml Output Total 300 ml 300 ml Balance 1185 ml 485 ml Intake Oral 960 ml IV Total 525 ml 785 ml Output Urine Total 300 ml 300 ml # Bowel Movements 4 Wound: clean Drains: none Cardiovascular: RSR Respiratory: clear Abdomen: soft, non-tender Extremities: no tenderness, no cyanosis Laboratory Tests Test 12/26/17 06:25 Sodium Level 137 MMOL/L (136-145) Potassium Level 3.8 MMOL/L (3.5-5.1) Chloride Level 106 MMOL/L (98-107) Carbon Dioxide Level 25 MMOL/L (21-32) Anion Gap 6 mmol/L (5-15) Blood Urea Nitrogen 25 mg/dL (7-18) H Creatinine 1.1 MG/DL (0.55-1.30) Estimat Glomerular Filtration Rate > 60 mL/min (>60) Glucose Level 193 MG/DL (74-106) H Calcium Level 7.6 MG/DL (8.5-10.1) L Plan Problems: (1) Cellulitis of scrotum Assessment & Plan: CT reviewed. no acute surgical intervention necessary skin care and non adherent dressigns IV Abx (2) Diabetic ulcer of left foot Assessment & Plan: large ulcer on left midfoot dorsal aspect. MRI without osteo and only ulcer venous and arterial duplex bilateral lower extremities okay s/p debridement. doing well. edema improving dressings daily IV Abx elevate extremities. Tesfaye Sears Dec 26, 2017 14:43
[2017-12-26] MEDS ORDERED: LEVAQUIN500 MG ORAL (15:14)
[2017-12-26 16:00] VITALS: BP 147/80
--- NOTE | 2017-12-29 12:16 | Discharge Summary ---
Discharge Summary Discharge Summary _ DATE OF ADMISSION: 12/20/2017 DATE OF DISCHARGE: 12/26/2017 REASON FOR ADMISSION: 65 years old male,with PMH of ie0iyneon, homeless , presented to emergency department with scrotal edema and pain and left foot ulcer. Patient reported subjective fevers. Patient reported generalized weakness. Patient reported difficulty with ambulation due to swelling. Upon evaluation WBC 13, hemoglobin 10.7 hematocrit 31.9 . Lactic acid 2.2 BUN 32 creatinine 1.3 Troponin with mild elevation - 0.103 pro BNP 09843 Urinalysis+4 protein, but no evidence of UTI Patient admitted with diagnosis of scrotal cellulitis, left leg ulcer, left leg cellulitis, proteinuria ,diabetes, severe protein calorie malnutrition CONSULTANTS: ID specialist Dr. Teixeira site manager Dr. Petit surgery Dr. Sears [place] [employer] [facility] COURSE: Patient admitted to medical surgical floor. Patient started on empiric antibiotics. ID and surgery consults were requested. Patient with the large ulcer on the left midfoot dorsal aspect. Venous duplex bilateral lower extremity was negative . MRI of the left foot revealed left foot cellulitis but no evidence of osteomyelitis. Left ankle MRI revealed evidence of cellulitis of the left foot, but no evidence of abscess or osteomyelitis. Patient subsequently undergone on 12/23 excisional debridement of left foot ulcer. Edema improved. Dressing changes were done daily. Wound care provided as per surgeon's recommendation with elevation of lower extremities. Patient with evidence of scrotal cellulitis. CT of the abdomen and pelvis was reviewed by surgeon, who concluded that no acute surgical intervention was necessary at this time. Skin care provided with nonadherent dressing. Patient was on IV antibiotics as per ID specialist recommendations. Left leg wound culture revealed Providencia, Klebsiella, Staphylococcus aureus. Scrotal wound culture revealed Proteus, Klebsiella, and MRSA. Patient was on IV antibiotics per ID specialist recommendations. Prior to discharge IV antibiotic were changed to oral to complete the course. No leukocytosis, no fever, patient clinically improved Echocardiogram revealed ejection fraction 35-40%, grade 2 diastolic dysfunction right ventricular systolic pressure of 40 consistent with moderate pulmonary hypertension. Lipid panel was stable. EKG showed no acute ischemic changes. Elevated troponin was likely due to acute kidney injury. No chest pain, no shortness of breath. DVT and GI prophylaxis provided. Blood pressure was managed with beta juliocesar. Tank Shop Supervisor closely followed. Renal parameters and electrolytes were closely monitored. Electrolytes were corrected as needed specifically hyperkalemia, resolved. Potassium stable after correction. Nephrotoxins were avoided. Proteinuria possibly due to diabetic nephropathy, needs outpatient workup. Patient was not compliant with ordered labs. Pain management was addressed. Bowel regimen instituted. Patient declined blood sugar checks , hemoglobin A1c -7.7 , needs further optimization as outpatient. Neon Sign Servicer recommendations implemented in plan of care. Patient was working with physical and occupational therapists. Edema subsided after surgery . Patient was able to ambulate without difficulty Patient was discharged initially to long term facility, however patient declined placement to long term facility and preferred to be discharged home. Patient was instructed on wound care and encouraged compliance with antibiotic regimen FINAL DIAGNOSES: Left foot ulcer with necrotic tissue Left leg cellulitis with Staph aureus, Klebsiella, Providencia. s/p 12/23 excisional debridement of left foot ulcer Scrotal cellulitis with Proteus ,Klebsiella ,MRSA Acute kidney injury, resolved Hyperkalemia, resolved Proteinuria Diabetic mellitus Severe protein calorie malnutrition Cardiomyopathy Pulmonary hypertension DISCHARGE MEDICATIONS: See Medication Reconciliation list. DISCHARGE INSTRUCTIONS: Patient was discharged home. Patient was instructed on wound care and to complete medication regimen. I have been assigned to dictate discharge summary for this account. I was not involved in the patient's management. Abena Parsons NP Dec 29, 2017 12:16
== END 2017-12-26 16:35 | disposition home or self-care (01) | DRG 951 ==
LOC: EDBD 15:41 → EMR 17:04 → EDBD 17:04 → EDBEDREQ 20:22 → 2E 20:32 → 4W 12-21 12:06
PROC: 0LBW0ZZ Excision of Left Foot Tendon, Open Approach (ICD-10-PCS; principal; 2017-12-23)
PROC: 0W993ZZ Drainage of Right Pleural Cavity, Percutaneous Approach (ICD-10-PCS; 2017-12-23)
DX: E11.621 Type 2 diabetes mellitus with foot ulcer (principal); L97.429 Non-pressure chronic ulcer of left heel and midfoot with unspecified severity; E43 Unspecified severe protein-calorie malnutrition; I96 Gangrene, not elsewhere classified; N17.9 Acute kidney failure, unspecified; J90 Pleural effusion, not elsewhere classified; E11.21 Type 2 diabetes mellitus with diabetic nephropathy; L03.116 Cellulitis of left lower limb; E87.5 Hyperkalemia; I27.20 Pulmonary hypertension, unspecified; B95.62 Methicillin resistant Staphylococcus aureus infection as the cause of diseases classified elsewhere; N49.2 Inflammatory disorders of scrotum; B96.1 Klebsiella pneumoniae [K. pneumoniae] as the cause of diseases classified elsewhere; B96.4 Proteus (mirabilis) (morganii) as the cause of diseases classified elsewhere; B96.89 Other specified bacterial agents as the cause of diseases classified elsewhere; I42.9 Cardiomyopathy, unspecified; Z59.0 Homelessness; K21.9 Gastro-esophageal reflux disease without esophagitis
CPT/HCPCS: 36415; 71045; 74177; 76942; 80048; 80053; 80061; 80202; 81003; 82140; 82550; 82553; 83036; 83605; 83735; 83880; 84100; 84132; 84484; 85025; 85610; 85730; 87040; 87070; 87081; 87181; 87205; 88104; 93005; 93306; 93970; 99285